=== PATIENT | female | born 1980 | race Caucasian/White ===

== ENCOUNTER 2016-05-21 12:32 | Emergency (ER) | payer BC, OTHER ==
[~2016-05-21] VITALS: Ht 154.9 cm; Wt 59.0 kg
--- OUTSIDE RECORDS SUMMARY | 2016-05-21 12:42 | XMS REPORT | Continuity of Care Document ---
Author Author [facility] Organization [facility] Address Unknown Phone Unavailable Care Team Providers Care Professional Architect Name Role Phone Zehra Lau PCP [phone] Source Comments Some departments are not documenting in the electronic medical record. If you do not see the information that you expected, contact Release of Information in the Health Information Management department at [phone] for further assistance in locating additional records.[facility] Active Allergies and Adverse Reactions Allergen Noted Date Severity Reactions Comments Sulfa (Sulfonamide 05/12/2014 HIVES, SHORTNESS OF Antibiotics) BREATH Current Medications Prescription Sig. Disp. Refills Start End Date Status Date dicyclomine (BENTYL) 10 Take 10 mg by mouth four Active mg capsule times daily. acetaminophen (TYLENOL) Take 1,000 mg by mouth Active 500 mg tablet every 6 hours as needed for Pain. pregabalin (LYRICA) 150 Take 150 mg by mouth Active mg capsule twice daily. ondansetron (ZOFRAN) 4 mg Take 1 Tab by mouth every 30 Tab 0 10/18/19 Active tablet 8 hours as needed for 16 Nausea. venlafaxine (EFFEXOR) Take 37.5 mg by mouth Active 37.5 mg tablet three times daily. Take with food. LORazepam (ATIVAN) 0.5 mg Take 1 Tab by mouth every Active tablet 6 hours as needed (Anxiety). HYDROcodone/acetaminophen Take 1-2 Tabs by mouth 75 Tab 0 04/21/19 Active (NORCO) 7.5/325 mg tablet every 8 hours as needed 17 for Pain Earliest Fill Date: 04/21/16 Max 8 tabs/day cephalexin (KEFLEX) 500 Take 1 Cap by mouth four 40 Cap 0 04/27/19 Active mg capsule times daily. 17 HYDROcodone/acetaminophen Take 1-2 Tabs by mouth 50 Tab 0 05/05/19 Active (NORCO) 5/325 mg tablet every 6 hours as needed 17 for Pain Max 8 tabs/day traMADol (ULTRAM) 50 mg Take 1 Tab by mouth every 100 Tab 1 05/11/19 Active tablet 6 hours as needed for 17 Pain. HYDROcodone/acetaminophen Take 1-2 Tabs by mouth 50 Tab 0 04/27/19 05/05/19 Discontin (NORCO) 5/325 mg tablet every 4 hours as needed 17 17 ued for Pain Max 8 tabs/day Active Problems Problem Noted Date S/P ankle fusion 09/06/2015 Ankle wound 01/15/2015 Fracture of humerus, proximal, right, closed 10/04/2014 Postop check 08/21/2014 Surgical wound infection 08/06/2014 Postop check 08/03/2014 Fall 05/12/2014 Talus fracture 05/12/2014 Resolved Problems Problem Noted Date Resolved Date Humerus fracture 05/12/2014 10/04/2014 Most Recent Encounters Date Type Specialty Providers Description 05/20/2016 Nurse Only Orthopedic Surgery Beatriz Helton LPN 05/11/2016 Refill Orthopedic Surgery Jairo Bravo MD 05/11/2016 Refill Orthopedic Surgery Jairo Bravo MD 05/05/2016 Refill Orthopedic Surgery Jairo Bravo MD 04/27/2016 Refill Orthopedic Surgery Jairo Bravo MD 04/21/2016 [facility] Radiology Jairo Bravo MD Encounter 04/21/2016 Office Visit Orthopedic Surgery Jairo Bravo MD Right foot pain (Primary Dx); Postop check 04/20/2016 Telephone Orthopedic Surgery Jairo Bravo MD Follow-up Phone Call 03/26/2016 [facility] Radiology Marisa Schroeder APRN Encounter 03/26/2016 Office Visit Orthopedic Surgery Marisa Schroeder APRN Postop check (Primary Dx) 03/25/2016 Orders Only Orthopedic Surgery Marisa Schroeder APRN Pain ( Primary Dx) 03/19/2016 Refill Orthopedic Surgery Jairo Bravo MD 03/12/2016 Office Visit Orthopedic Surgery Marisa Schroeder APRN Postop check (Primary Dx) 03/06/2016 [facility] Jairo Bravo MD Calcaneus fracture, right Encounter 03/06/2016 Anesthesia Bry Servin MD Event 03/06/2016 Anesthesia Kalyan Gallo CRNA Event 03/06/2016 Surgery Jairo Bravo MD OPEN REDUCTION INTERNAL FIXATION RIGHT CALCANEUS 03/04/2016 Ancillary Radiology Outpatient, Radiologist Diagnosis unknown Orders (Primary Dx) 02/28/2016 Ancillary Radiology Outpatient, Radiologist Diagnosis unknown Orders (Primary Dx) 02/28/2016 Prep for Case Orthopedic Surgery Jairo Bravo MD 02/27/2016 Office Visit Orthopedic Surgery Jairo Bravo MD Closed displaced fracture of right calcaneus, unspecified portion of calcaneus, initial encounter (Primary Dx) 02/24/2016 Hospital Radiology Encounter 02/24/2016 Hospital Radiology Encounter 02/24/2016 Hospital Radiology Encounter 02/24/2016 Hospital Radiology Encounter Social History Tobacco Use Types Packs/Day Years Used Date Current Every Day Smoker Cigarettes 0.25 20 Smokeless Tobacco: Never Used Tobacco Cessation: Ready to Quit: Yes Comments: Alcohol Use Drinks/Week oz/Week Comments Yes year ago reported 08/07/2014 Last Filed Vital Signs Vital Sign Reading Time Taken Blood Pressure 118/78 03/06/2016 4:45 PM HOTBED LEVER OPERATOR Pulse 89 03/06/2016 4:45 PM HOTBED LEVER OPERATOR Temperature 36.6 C (97.9 F) 03/06/2016 4:45 PM HOTBED LEVER OPERATOR Respiratory Rate 14 10/04/2014 8:36 AM CDT Height 1.549 m (5' 1") 04/21/2016 10:03 AM HOTBED LEVER OPERATOR Weight 58.06 kg (128 lb) 04/21/2016 10:03 AM HOTBED LEVER OPERATOR Body Mass Index 24.2 04/21/2016 10:03 AM HOTBED LEVER OPERATOR Oxygen Saturation 97% 03/06/2016 4:45 PM HOTBED LEVER OPERATOR Plan of Care Date Type Specialty Providers Description 06/16/2016 Appointment Orthopedic Surgery Jairo Bravo MD [address] [facility] [address] [place] [address] [phone] (Fax) Health Maintenance Due Date Last Done Comments Physical (Comprehensive) 11/16/1986 Exam Pertussis Vaccine 11/16/1990 Tetanus Vaccine 11/16/1996 Cervical Cancer Screening 11/16/2000 Influenza Vaccine 11/28/2015 Procedures from Last 3 Months Procedure Name Priority Date/Time Associated Diagnosis Comments TELEMETRY STRIPS-SCAN 03/09/2016 Results for this 1:03 PM HOTBED LEVER OPERATOR procedure are in the results section. ANESTHESIA PERIPHERAL Routine 03/06/2016 Results for this NERVE BLOCK 4:36 PM HOTBED LEVER OPERATOR procedure are in the results section. ANESTHESIA PERIPHERAL Routine 03/06/2016 Results for this NERVE BLOCK 4:36 PM HOTBED LEVER OPERATOR procedure are in the results section. OPEN REDUCTION INTERNAL 03/06/2016 Calcaneus fracture, right FIXATION RIGHT CALCANEUS 12:55 PM HOTBED LEVER OPERATOR Results from Last 3 Months FOOT COMP MIN 3 VIEWS RIGHT (04/21/2016 10:14 AM)Only the most recent of 2 results within the time period is included. Impressions Impression: Mild partial progressive healing of the internally fix fracture the calcaneus. Finalized by Gwyn Roberts M.D. on 04/21/2016 12:20 PM. Dictated by Gwyn Roberts M.D. on 04/21/2016 12:16 PM. Narrative Foot Clinic data: Right foot pain Three projections were acquired. Comparison is made to patient's prior study of 03/26/2016. The fracture the calcaneus is again noted. Alignment appears unchanged. Mild partial progressive healing is noted. No new fractures are noted. Is no evidence of abnormal lucency associated orthopedic hardware. Degenerative changes involving the first MTP joint are present. Mild osteopenia is present. Procedure Note Interface, Radiant Results - Tue Apr 21, 2016 12:23 PM HOTBED LEVER OPERATOR Foot Clinic data: Right foot pain Three projections were acquired. Comparison is made to patient's prior study of 03/26/2016. The fracture the calcaneus is again noted. Alignment appears unchanged. Mild partial progressive healing is noted. No new fractures are noted. Is no evidence of abnormal lucency associated orthopedic hardware. Degenerative changes involving the first MTP joint are present. Mild osteopenia is present. IMPRESSION Impression: Mild partial progressive healing of the internally fix fracture the calcaneus. Finalized by Gwyn Roberts M.D. on 04/21/2016 12:20 PM. Dictated by Gwyn Roberts M.D. on 04/21/2016 12:16 PM. TELEMETRY STRIPS-SCAN (03/09/2016 1:03 PM) Narrative Ordered by an unspecified provider. ANESTHESIA PERIPHERAL NERVE BLOCK (03/06/2016 4:36 PM) Narrative Bry Servin MD 03/06/20164:36 PM Anesthesia Procedure: Peripheral Nerve Block PERIPHERAL NERVE BLOCK Date/Time: 03/06/2016 1:00 PM Patient location: pre-op Reason for block: post-op pain management Staff Anesthesiologist: VENESSA ANGELO Performed by: BRY SERVIN Preprocedure checklist performed: 2 patient identifiers, risks & benefits discussed, patient evaluated, timeout performed, consent obtained, patient being monitored and sterile drape Sterile technique: - Proper hand washing - Cap, mask - Sterile gloves - Skin prep for antisepsis Peripheral Nerve Block Procedure Patient position: supine Prep: ChloraPrep Monitoring: BP, EKG and continuous pulse ox Block type: popliteal Laterality: right Injection technique: catheter Procedures: ultrasound guided Local infiltration: lidocaine Strength: 1%; Dose: 3 mL Needle/cathether: Needle type: Tuohy Needle gauge: 18 G; Needle length: 4 in Needle location: ultrasound guidance Catheter at skin depth: 10 cm Procedure Outcome Injection assessment: negative aspiration for heme, no paresthesia on injection, incremental injection and local visualized surrounding nerve on ultrasound Observations: adequate block, comfortable throughout block, patient sedated but conversant throughout block and patient tolerated the procedure well with no immediate complications Refer to nursing documentation for vitals and monitoring data during procedure. Anesthesia Procedure: Peripheral Nerve Block PERIPHERAL NERVE BLOCK Date/Time: 03/06/2016 1:00 PM Patient location: pre-op Reason for block: post-op pain management Staff Anesthesiologist: VENESSA ANGELO Performed by: BRY SERVIN Preprocedure checklist performed: 2 patient identifiers, risks & benefits discussed, patient evaluated, timeout performed, consent obtained, patient being monitored and sterile drape Sterile technique: - Proper hand washing - Cap, mask - Sterile gloves - Skin prep for antisepsis Peripheral Nerve Block Procedure Patient position: supine Prep: ChloraPrep Monitoring: BP, EKG and continuous pulse ox Block type: adductor canal Laterality: right Injection technique: single-shot Procedures: ultrasound guided Local infiltration: lidocaine Strength: 1%; Dose: 2 mL Needle/cathether: Needle type: Tuohy Needle gauge: 18 G; Needle length: 4 in Needle location: ultrasound guidance Procedure Outcome Injection assessment: negative aspiration for heme, no paresthesia on injection, incremental injection and local visualized surrounding nerve on ultrasound Observations: adequate block, patient sedated but conversant throughout block, patient tolerated the procedure well with no immediate complications and comfortable throughout block Refer to nursing documentation for vitals and monitoring data during procedure. ANESTHESIA PERIPHERAL NERVE BLOCK (03/06/2016 4:36 PM) Kirk Servin MD 03/06/20164:36 PM Anesthesia Procedure: Peripheral Nerve Block PERIPHERAL NERVE BLOCK Date/Time: 03/06/2016 1:00 PM Patient location: pre-op Reason for block: post-op pain management Staff Anesthesiologist: VENESSA ANGELO Performed by: BRY SEVRIN Preprocedure checklist performed: 2 patient identifiers, risks & benefits discussed, patient evaluated, timeout performed, consent obtained, patient being monitored and sterile drape Sterile technique: - Proper hand washing - Cap, mask - Sterile gloves - Skin prep for antisepsis Peripheral Nerve Block Procedure Patient position: supine Prep: ChloraPrep Monitoring: BP, EKG and continuous pulse ox Block type: popliteal Laterality: right Injection technique: catheter Procedures: ultrasound guided Local infiltration: lidocaine Strength: 1%; Dose: 3 mL Needle/cathether: Needle type: Tuohy Needle gauge: 18 G; Needle length: 4 in Needle location: ultrasound guidance Catheter at skin depth: 10 cm Procedure Outcome Injection assessment: negative aspiration for heme, no paresthesia on injection, incremental injection and local visualized surrounding nerve on ultrasound Observations: adequate block, comfortable throughout block, patient sedated but conversant throughout block and patient tolerated the procedure well with no immediate complications Refer to nursing documentation for vitals and monitoring data during procedure. Anesthesia Procedure: Peripheral Nerve Block PERIPHERAL NERVE BLOCK Date/Time: 03/06/2016 1:00 PM Patient location: pre-op Reason for block: post-op pain management Staff Anesthesiologist: VENESSA ANGELO Performed by: BRY SERVIN Preprocedure checklist performed: 2 patient identifiers, risks & benefits discussed, patient evaluated, timeout performed, consent obtained, patient being monitored and sterile drape Sterile technique: - Proper hand washing - Cap, mask - Sterile gloves - Skin prep for antisepsis Peripheral Nerve Block Procedure Patient position: supine Prep: ChloraPrep Monitoring: BP, EKG and continuous pulse ox Block type: adductor canal Laterality: right Injection technique: single-shot Procedures: ultrasound guided Local infiltration: lidocaine Strength: 1%; Dose: 2 mL Needle/cathether: Needle type: Tuohy Needle gauge: 18 G; Needle length: 4 in Needle location: ultrasound guidance Procedure Outcome Injection assessment: negative aspiration for heme, no paresthesia on injection, incremental injection and local visualized surrounding nerve on ultrasound Observations: adequate block, patient sedated but conversant throughout block, patient tolerated the procedure well with no immediate complications and comfortable throughout block Refer to nursing documentation for vitals and monitoring data during procedure. TEST-URINE (03/06/2016 11:40 AM) Component Value Range Urine-HCG NEG Specific [place] 1.019 Specimen Urine GENERAL RAD LOWER EXT EXTERNAL IMAGING (02/24/2016 12:45 AM)Only the most recent of 2 results within the time period is included. Narrative This order has been auto finalized and does not contain a result. CT LOWER EXT EXTERNAL IMAGING (02/24/2016 12:30 AM)Only the most recent of 2 results within the time period is included. Narrative This order has been auto finalized and does not contain a result.
--- NOTE | 2016-05-21 12:46 | ED General ---
General Chief Complaint: General Problems/Pain Stated Complaint: MED REFILL Nursing Triage Note: PT STATES SHE NEEDS A REFILL ON HER LYRICA MEDICATION. STATES SHE DOES NOT HAVE A PCP ANYMORE. Nursing Sepsis Screen: No Definite Risk Source of Information: Patient Exam Limitations: No Limitations History of Present Illness Time Seen by Provider: 12:44 Initial Comments Ambulatory to ER requesting a refill on her Lyrica. States that she "fired" her primary care provider in [place] 1.5 months ago and is now out of her Lyrica. She states that she has in the past had hydrocodone and Ultram for pain but that they don't work that she may have a few of them left. Records indicate that she had them filled just this month. She denies any new or worsening symptoms or chronic back pain. Does not report fevers or chills Constitutional: see HPI EENTM: see HPI Respiratory: no symptoms reported Cardiovascular: no symptoms reported Genitourinary: no symptoms reported Musculoskeletal: see HPI back pain Skin: no symptoms reported Psychiatric/Neurological: No Symptoms Reported Hematologic/Lymphatic: No Symptoms Reported Past [id number] Hx Patient Social History Recent Foreign Travel: No Contact w/Someone Who Travel: No Recent Infectious Disease Expo: No Physical Exam Vital Signs Vital Sign - Last 12Hours 05/21/16 12:41 Temp 99.2 Pulse 111 Resp 20 B/P 145/100 Pulse Ox 96 O2 Delivery Room Air Capillary Refill : Less Than 3 Seconds General Appearance: No Apparent Distress WD/WN Eyes: Bilateral Eye EOMI, Bilateral Eye Normal Inspection, Bilateral Eye PERRL HEENT: PERRL/EOMI TMs Normal Neck: Full Range of Motion Normal Inspection Respiratory: Lungs Clear Normal Breath Sounds No Accessory Muscle Use No Respiratory Distress Cardiovascular: Normal Peripheral Pulses Tachycardia Gastrointestinal: Non Tender Soft Extremity: Normal Capillary Refill Normal Inspection Neurologic/Psychiatric: Alert Oriented x3 No Motor/Sensory Deficits Skin: Normal Color Warm/Dry Progress/Results/Core Measures Results/Orders Vital Signs/I&O Vital Sign - Last 12Hours 05/21/16 12:41 Temp 99.2 Pulse 111 Resp 20 B/P 145/100 Pulse Ox 96 O2 Delivery Room Air Blood Pressure Mean: 115 Departure Impression Impression: Primary Impression: Chronic pain Qualified Code: G89.29 - Other chronic pain Disposition: 01 HOME, SELF-CARE Condition: Stable Departure-Patient Inst. Decision time for Depature: 12:46 Referrals: NO,LOCAL PHYSICIAN (PCP/Family) Primary Care Physician Patient Instructions: CHRONIC PAIN Add. Discharge Instructions: 1. Call one of the providers listed to make an appointment to be seen All discharge instructions reviewed with patient and/or family. Voiced understanding. Work/School Note: Local Medical Staff Listing CORY HARGROVE APRN May 21, 2016 12:46
[2016-05-21] MEDS ORDERED: PREG150C PO (12:50)
[2016-05-21] MEDS ORDERED: HYDR-3816 PO (12:50)
[2016-05-21] MEDS ORDERED: VENLAFAXINE (12:50)
[2016-05-21 12:53] VITALS: BP 145/100
== END 2016-05-21 12:53 | disposition home or self-care (01) ==
LOC: ER 12:37
DX: G89.29 Other chronic pain (principal)
CPT/HCPCS: 99281

== ENCOUNTER 2018-08-25 17:22 | Emergency (ER) | payer SELFPAY ==
[~2018-08-25] VITALS: Ht 154.9 cm; Wt 54.4 kg
[~2018-08-25 17:22] MED LIST: HYDR-34 PO; PREG150C PO; VENLAFAXINE
[2018-08-25 17:43] LABS: HEMATOCRIT 37 % (35-52); HEMOGLOBIN 12.6 G/DL (11.5-16.0); LYMPHOCYTES % (AUTO) 29 % (12-44); MEAN CORPUSCULAR HEMOGLOBIN 33 PG (25-34); MEAN CORPUSCULAR HGB CONC 34 G/DL (32-36); MEAN CORPUSCULAR VOLUME 96 FL (80-99); MEAN PLATELET VOLUME 9.7 FL (7.4-10.4); MONOCYTES % (AUTO) 6 % (0-12); NEUTROPHILS % (AUTO) 64 % (42-75); PLATELET COUNT 315 10^3/uL (130-400); RED CELL DISTRIBUTION WIDTH 14.2 % (10.0-14.5); WHITE BLOOD COUNT 11.2 10^3/uL (4.3-11.0)
[2018-08-25 17:44] LABS: BASOPHILS % (AUTO) 0 % (0-10); EOSINOPHILS # (AUTO) 0.1 10^3/uL (0.0-0.3); EOSINOPHILS % (AUTO) 1 % (0-10); LYMPHOCYTES # (AUTO) 3.3 X 10^3 (1.0-4.0); MONOCYTES # (AUTO) 0.6 X 10^3 (0.0-1.0); NEUTROPHILS # (AUTO) 7.1 X 10^3 (1.8-7.8)
--- NOTE | 2018-08-25 17:50 | Diagnostic Imaging Report ---
PROCEDURE: CT head without contrast. TECHNIQUE: Multiple contiguous axial images were obtained through the brain without the use of intravenous contrast. Auto Exposure Controls were utilized during the CT exam to meet ALARA standards for radiation dose reduction. INDICATION: Syncope and fall. FINDINGS: The ventricles and sulci are within normal limits. There is no hydrocephalus or cerebral edema. There is no midline shift or mass effect. There is no intracranial mass, hemorrhage, or extra-axial fluid collection. The visualized paranasal sinuses and mastoid air cells are clear. There are no regional areas of decreased attenuation appreciated to suggest an acute CVA. IMPRESSION: No acute intracranial abnormality. Dictated by: Dictated on workstation # [id number]
[2018-08-25 18:01] LABS: INR 0.8 (0.8-1.4); PROTHROMBIN TIME PATIENT 11.9 SEC (12.2-14.7)
[2018-08-25 18:08] LABS: ALANINE AMINOTRANSFERASE 9 U/L (0-55); ALBUMIN 4.1 GM/DL (3.2-4.5); ALKALINE PHOSPHATASE 128 U/L (40-136); BILIRUBIN,TOTAL 0.2 MG/DL (0.1-1.0); BUN/CREATININE RATIO 15; CALCIUM 9.3 MG/DL (8.5-10.1); CARBON DIOXIDE 24 MMOL/L (21-32); CHLORIDE 100 MMOL/L (98-107); CREATININE SERUM 0.52 MG/DL (0.60-1.30); GFR ESTIMATED > 60; GLUCOSE 95 MG/DL (70-105); MAGNESIUM 1.7 MG/DL (1.8-2.4); POTASSIUM 3.9 MMOL/L (3.6-5.0); SODIUM 137 MMOL/L (135-145); TOTAL PROTEIN 6.8 GM/DL (6.4-8.2)
--- NOTE | 2018-08-25 18:10 | Diagnostic Imaging Report ---
INDICATION: Cough and syncope. COMPARISON: No prior examination is available for comparison. EXAMINATION: Single view of the chest was obtained. FINDINGS: The heart size, mediastinal configuration, and pulmonary vascularity are within normal limits. There is no pleural effusion, pneumothorax, or pneumonia. The osseous structures are unremarkable. IMPRESSION: No acute cardiopulmonary abnormality. Dictated by: Dictated on workstation # [id number]
--- NOTE | 2018-08-25 18:46 | ED Syncope ---
General Chief Complaint: Dizziness/Syncope Stated Complaint: DIZZY, PT FELL Nursing Triage Note: PTS FOUNDHER ON THE BATHRRROM FLOOR. 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 Source of Information: Patient History of Present Illness Date Seen by Provider: August 25, 2018 Time Seen by Provider: 18:21 Initial Comments Patient is a 37-year-old female presenting to the emergency department after having syncopal episode at home. 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 She is been up all night working the last 2 nights and not been able to rest during the day. Today she had gotten home from work and had several think she had to get done so she did not rest today either. She was having a lot of pain in her feet from work so she had taken some pain medications morning as well. She states that she has had episodes of fainting and passing out like this in the past when her blood sugar been low. She does admit that she's not had anything to eat or drink all day. She was found on the bathroom floor by her . She thinks she may have hit her head as well as she fell. She denies any nausea or vomiting. She denies any diarrhea. She denies having any fever recently but has had cough and congestion with sinus drainage. She denies any pain with urination or change in her urine. Allergies and Home Medications Allergies Coded Allergies: Sulfa (Sulfonamide Antibiotics) (Verified Allergy, Intermediate, 05/21/16) Home Medications Pregabalin 150 Mg Capsule, 150 MG PO TID, (Reported) Patient Home Medication List Home Medication List Reviewed: Yes Review of Systems Constitutional: No chills, No diaphoresis, No fever EENTM: nose congestion (and sinus pressure) Respiratory: cough Cardiovascular: no symptoms reported; No chest pain, No edema, No palpitations Gastrointestinal: no symptoms reported; No diarrhea, No nausea, No vomiting Genitourinary: no symptoms reported; No dysuria, No hematuria Musculoskeletal: other (chronic pain in feet and legs) Skin: no symptoms reported Psychiatric/Neurological: Headache (mild since fainting), Other (insomnia and trouble sleeping chronically) Past Xnxbjvz-Sxfwuk-Sfzxho Hx Past Med/Social Hx: Reviewed Nursing Past Med/Soc Hx Patient Social History Type Used: Cigarettes Recent Foreign Travel: No Contact w/Someone Who Travel: No Recent Infectious Disease Expo: No Recent Hopitalizations: Yes (SURGERY IN 02/2016 FOR LT FOOT) Physical Abuse: No Sexual Abuse: No Mistreated: No Fear: No Seasonal Allergies Seasonal Allergies: Yes Past Medical History Surgeries: Yes Hysterectomy, Orthopedic, Tubal Ligation Respiratory: No Cardiac: No Neurological: Yes Neuropathy : No 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 oz. 54.921582re; BMI Method:Stated General Appearance: No Apparent Distress, WD/WN HEENT: PERRL/EOMI, Normal ENT Inspection, Pharynx Normal Neck: Full Range of Motion, Normal Inspection, Non Tender, Supple Cardiovascular: Regular Rate, Rhythm, Normal Peripheral Pulses Respiratory: Chest Non Tender, Lungs Clear, Normal Breath Sounds, No Accessory Muscle Use, No Respiratory Distress Gastrointestinal: No Pulsatile Mass, Non Tender, Soft Neurologic/Psychiatric: Alert, Oriented x3 Cranial Nerves: Normal Hearing, Normal Speech, PERRL Motor/Sensory: No Motor Deficit, No Sensory Deficit Skin: Normal Color, Warm/Dry Progress/Results/Core Measures Results/Orders Lab Results Laboratory Tests Test 08/25/18 17:35 08/25/18 18:24 Range/Units White Blood Count 11.2 H 4.3-11.0 10^3/uL Red Blood Count 3.85 L 4.35-5.85 10^6/uL Hemoglobin 12.6 11.5-16.0 G/DL Hematocrit 37 35-52 % Mean Corpuscular Volume 96 80-99 FL Mean Corpuscular Hemoglobin 33 25-34 PG Mean Corpuscular Hemoglobin Concent 34 32-36 G/DL Red Cell Distribution Width 14.2 10.0-14.5 % Platelet Count 315 130-400 10^3/uL Mean Platelet Volume 9.7 7.4-10.4 FL Neutrophils (%) (Auto) 64 42-75 % Lymphocytes (%) (Auto) 29 12-44 % Monocytes (%) (Auto) 6 0-12 % Eosinophils (%) (Auto) 1 0-10 % Basophils (%) (Auto) 0 0-10 % Neutrophils # (Auto) 7.1 1.8-7.8 X 10^3 Lymphocytes # (Auto) 3.3 1.0-4.0 X 10^3 Monocytes # (Auto) 0.6 0.0-1.0 X 10^3 Eosinophils # (Auto) 0.1 0.0-0.3 10^3/uL Basophils # (Auto) 0.0 0.0-0.1 10^3/uL Prothrombin Time 11.9 L 12.2-14.7 SEC INR Comment 0.8 0.8-1.4 Activated Partial Thromboplast Time 30 24-35 SEC Sodium Level 137 135-145 MMOL/L Potassium Level 3.9 3.6-5.0 MMOL/L Chloride Level 100 98-107 MMOL/L Carbon Dioxide Level 24 21-32 MMOL/L Anion Gap 13 5-14 MMOL/L Blood Urea Nitrogen 8 7-18 MG/DL Creatinine 0.52 L 0.60-1.30 MG/DL Estimat Glomerular Filtration Rate > 60 BUN/Creatinine Ratio 15 Glucose Level 95 70-105 MG/DL Calcium Level 9.3 8.5-10.1 MG/DL Corrected Calcium 9.2 8.5-10.1 MG/DL Magnesium Level 1.7 L 1.8-2.4 MG/DL Total Bilirubin 0.2 0.1-1.0 MG/DL Aspartate Amino Transf (AST/SGOT) 18 5-34 U/L Alanine Aminotransferase (ALT/SGPT) 9 0-55 U/L Alkaline Phosphatase 128 40-136 U/L Troponin T < 6 <=10 NG/L Total Protein 6.8 6.4-8.2 GM/DL Albumin 4.1 3.2-4.5 GM/DL Urine Color YELLOW Urine Clarity CLEAR Urine pH 6.0 5-9 Urine Specific [place] <1.005 1.016-1.022 Urine Protein NEGATIVE NEGATIVE Urine Glucose (UA) NEGATIVE NEGATIVE Urine Ketones NEGATIVE NEGATIVE Urine Nitrite NEGATIVE NEGATIVE Urine Bilirubin NEGATIVE NEGATIVE Urine Urobilinogen 0.2 NORMAL MG/DL Urine Leukocyte Esterase NEGATIVE NEGATIVE Urine RBC (Auto) NEGATIVE NEGATIVE Urine RBC NONE /HPF Urine WBC NONE /HPF Urine Squamous Epithelial Cells 0-2 /HPF Urine Crystals NONE /LPF Urine Bacteria TRACE /HPF Urine Casts NONE /LPF Urine Mucus NEGATIVE /LPF Urine Culture Indicated NO Urine Opiates Screen POSITIVE H NEGATIVE Urine Oxycodone Screen NEGATIVE NEGATIVE Urine Methadone Screen NEGATIVE NEGATIVE Urine Propoxyphene Screen NEGATIVE NEGATIVE Urine Barbiturates Screen NEGATIVE NEGATIVE Ur Tricyclic Antidepressants Screen NEGATIVE NEGATIVE Urine Phencyclidine Screen NEGATIVE NEGATIVE Urine Amphetamines Screen NEGATIVE NEGATIVE Urine Methamphetamines Screen NEGATIVE NEGATIVE Urine Benzodiazepines Screen NEGATIVE NEGATIVE Urine Cocaine Screen NEGATIVE NEGATIVE Urine Cannabinoids Screen NEGATIVE NEGATIVE Vital Signs/I&O 08/25/18 08/25/18 17:28 19:23 Temp 97.8 97.5 Pulse 100 92 Resp 20 16 B/P (MAP) 130/85 (100) 140/82 (101) Pulse Ox 97 O2 Delivery Room Air Room Air 08/26/18 00:00 Intake Total 500 ml Balance 500 ml Blood Pressure Mean: 100 Progress Progress Note : Progress Note I reviewed labs and imaging that had been ordered by Dr. Davila during the day shift. No acute abnormality on her CT scan her chest x-ray. Her labs. All stable as well. Patient reports feel better after having fluids as well as having a snack here in the emergency department. She denied having any further dizziness. Will discharge to home with return precautions. Advised to eat small frequent meals for at least next to help try and keep her blood sugar a more steady level. Also encouraged to try and get better sleep. Initial ECG Impression Date: August 25, 2018 Initial ECG Impression Time: 17:28 Initial ECG Rate: 95 Initial ECG Rhythm: Normal Sinus Initial ECG Intervals: Normal Initial ECG Impression: Normal Initial ECG Comparisson: No Previous ECG Available Comment Normal sinus rhythm with heart rate 95 bpm. NC interval 134 ms. QT interval of 358 ms and a QT corrected interval [address] elevation or ischemic changes. Initial EKG reviewed by Dr. Davila. Diagnostic Imaging Diagonstic Imaging: CT Plain Films/CT/US/NM/MRI: head Comments NAME: LENA YANCEY MED REC#: [id number] PT STATUS: REG ER : 1980 PHYSICIAN: SANDY LNI MD ADMIT DATE: 08/25/18/ER FS Signed Date of Exam:08/25/18 CT HEAD WO PROCEDURE: CT head without contrast. TECHNIQUE: Multiple contiguous axial images were obtained through the brain without the use of intravenous contrast. Auto Exposure Controls were utilized during the CT exam to meet ALARA standards for radiation dose reduction. INDICATION: Syncope and fall. FINDINGS: The ventricles and sulci are within normal limits. There is no hydrocephalus or cerebral edema. There is no midline shift or mass effect. There is no intracranial mass, hemorrhage, or extra-axial fluid collection. The visualized paranasal sinuses and mastoid air cells are clear. There are no regional areas of decreased attenuation appreciated to suggest an acute CVA. IMPRESSION: No acute intracranial abnormality. Dictated by: Dictated on workstation # [id number] Dict: 08/25/181747 Trans: 08/25/181831 [id number] Interpreted by: NORMA BULLOCK MD Electronically signed by: NORMA BULLOCK MD 08/25/181831 Reviewed: Reviewed by Me (and radiologist reading) Diagonstic Imaging: Xray Plain Films/CT/US/NM/MRI: chest Comments NAME: LENA YANCEY MED REC#: [id number] PT STATUS: REG ER : 1980 PHYSICIAN: SANDY LIN MD ADMIT DATE: 08/25/18/ER FS Signed Date of Exam:08/25/18 CHEST 1 VIEW AP/PA ONLY INDICATION: Cough and syncope. COMPARISON: No prior examination is available for comparison. EXAMINATION: Single view of the chest was obtained. FINDINGS: The heart size, mediastinal configuration, and pulmonary vascularity are within normal limits. There is no pleural effusion, pneumothorax, or pneumonia. The osseous structures are unremarkable. IMPRESSION: No acute cardiopulmonary abnormality. Dictated by: Dictated on workstation # [id number] Dict: 08/25/181803 Trans: 08/25/181831 PJE [id number] Interpreted by: NORMA BULLOCK MD Electronically signed by: NORMA BULLOCK MD 08/25/181831 Reviewed: Reviewed by Me (and radiologist reading) Departure Impression Primary Impression: Syncope Qualified Codes: R55 - Syncope and collapse Additional Impressions: Insomnia Qualified Codes: G47.00 - Insomnia, unspecified Fatigue Qualified Codes: R53.83 - Other fatigue Disposition: 01 HOME, SELF-CARE Condition: Stable Departure-Patient Inst. Decision time for Depature: 19:17 Referrals: NO,LOCAL PHYSICIAN (PCP/Family) Primary Care Physician Patient Instructions: Syncope (Fainting) (DC), Insomnia (DC) Add. Discharge Instructions: Make sure you are eating regularly to keep your blood sugars at a more constant level. Try to get better rest Check with clinic for continued concerns or return if worsening symptoms. All discharge instructions reviewed with patient and/or family. Voiced understanding. Work/School Note: Work Release Form Date Seen in the Emergency Department: August 25, 2018 Return to Work: August 26, 2018 GEORGIA HOOKS MD August 25, 2018 18:46
[2018-08-25 19:10] LABS: AMPHETAMINE SCREEN, URINE NEGATIVE (NEGATIVE); BACTERIA,URINE TRACE /HPF; BARBITURATE SCREEN URINE NEGATIVE (NEGATIVE); BENZODIAZEPINES SCREEN URINE NEGATIVE (NEGATIVE); BILIRUBIN,URINE NEGATIVE (NEGATIVE); CANNABINOID SCREEN, URINE NEGATIVE (NEGATIVE); CLARITY,URINE CLEAR; COCAINE SCREEN URINE NEGATIVE (NEGATIVE); COLOR,URINE YELLOW; GLUCOSE, URINE (UA) NEGATIVE (NEGATIVE); KETONES,URINE NEGATIVE (NEGATIVE); LEUKOCYTE ESTERASE ,URINE NEGATIVE (NEGATIVE); METHADONE STAT NEGATIVE (NEGATIVE); METHAMPHETAMINE SCREEN URINE S NEGATIVE (NEGATIVE); NITRITE,URINE NEGATIVE (NEGATIVE); OPIATE SCREEN URINE POSITIVE (NEGATIVE); OXYCODONE STAT NEGATIVE (NEGATIVE); PROPOXYPHENE STAT NEGATIVE (NEGATIVE); PROTEIN,URINE NEGATIVE (NEGATIVE); SQUAMOUS EPITHELIAL CELL,UR 0-2 /HPF; TRICYCLIC ANTIDEPRESSANTS SCRE NEGATIVE (NEGATIVE); UROBILINOGEN,URINE 0.2 MG/DL (NORMAL)
[2018-08-25 19:23] VITALS: BP 140/82
--- NOTE | 2018-08-25 19:30 | NUR ---
iv fluids that had been started by EMS was discontinued prior to this rn seeing the patient.
== END 2018-08-25 19:30 | disposition home or self-care (01) ==
LOC: EDUNIT# 17:22 → ER FS 17:23
DX: R55 Syncope and collapse (principal); G47.00 Insomnia, unspecified; R53.83 Other fatigue; G62.9 Polyneuropathy, unspecified; Z88.2 Allergy status to sulfonamides; Z98.890 Other specified postprocedural states; Z90.710 Acquired absence of both cervix and uterus; Z98.51 Tubal ligation status
CPT/HCPCS: 36415; 70450; 71045; 80053; 80306; 81000; 83735; 84484; 85025; 85610; 85730; 93005

== ENCOUNTER 2018-09-25 08:33 | Emergency (ER) | payer SELFPAY ==
[~2018-09-25] VITALS: Ht 154.9 cm; Wt 54.4 kg
--- OUTSIDE RECORDS SUMMARY | 2018-09-25 08:38 | XMS REPORT | Encounter Summary ---
Author Author [facility] Organization [facility] Address Unknown Phone Unavailable Care Team Providers Care Breaker Layer Name Role Phone Zehra Lau MD PCP Unavailable Martine Bravo RN Unavailable Unavailable Maria M Watkins RN Unavailable Unavailable Jonathon Pérez RN Unavailable Unavailable Kayley Parks MD Unavailable Tosha Dawkins RN Unavailable Unavailable Pao Quintero RING PACKER-MANAGER HARDWARE Unavailable Rene Thompson MD Unavailable Marisa Schroeder RING PACKER Unavailable Jairo Bravo MD Unavailable Mychart, Generic Provider Unavailable Unavailable Gerry Quevedo RN 2 Unavailable Ashok Piper MD Unavailable Jaci Brown MD Unavailable Nicole Gandhi RN Unavailable Unavailable Kathryn Alvarado RN Unavailable Unavailable Ashok Crespo RN Unavailable Unavailable Corin Gamble RT(R)(),LRT Unavailable Unavailable Ashok Garcia MD Unavailable Ene Fernandez RN 2 Unavailable Sarah Montesinos RN Unavailable Unavailable Encounter Details Care Team Description Date Type Department Rene Thompson MD [address] [facility] [address] [place] [address] [phone] Right shoulder pain, unspecified chronicity (Primary Dx) 05/20/2018 Orders Only The [facility] [address] [place] [address] Social History Date Tobacco Use Types Packs/Day Years Used Current Every Day Smoker Cigarettes 0.25 20 Smokeless Tobacco: Never Used Drinks/Week oz/Week Comments Alcohol Use year ago reported 08/07/2014 Yes Sex Assigned at Date Recorded Not on file Industry Job Start Date Occupation Not on file Not on file Not on file Travel End Travel History Travel Start No recent travel history available. documented as of this encounter Functional Status Date of Assessment Functional Status Response 09/07/2015 Does the patient have a hearing impairment: No 09/07/2015 Does the patient have a visual impairment: No 09/07/2015 Does the patient have impaired ambulation: Yes 09/07/2015 Does the patient have an activity of daily living No (ADL) impairment: 09/07/2015 Does the patient have an instrumental activity of No daily living (IADL) impairment: Date of Assessment Cognitive Status Response 09/07/2015 Does the patient have a cognitive impairment: No documented as of this encounter Plan of Treatment Order Schedule Name Type Priority Associated Diagnoses Expected: 05/20/2018 (Approximate), Expires: 05/20/2019 SHOULDER MIN 2 VIEWS Imaging Routine Right shoulder pain, RIGHT unspecified chronicity documented as of this encounter Visit Diagnoses Diagnosis Right shoulder pain, unspecified chronicity - Primary documented in this encounter
--- OUTSIDE RECORDS SUMMARY | 2018-09-25 08:38 | XMS REPORT | Encounter Summary ---
Author Author [facility] Organization [facility] Address Unknown Phone Unavailable Care Team Providers Care Bathhouse Attendant Name Role Phone Zehra Lau MD PCP Unavailable Martine Bravo RN Unavailable Unavailable Maria M Watkins RN Unavailable Unavailable Jonathon Pérez RN Unavailable Unavailable Kayley Parks MD Unavailable Tosha Dawkins RN Unavailable Unavailable Pao Quintero INDUSTRIAL RELATIONS OFFICER-LABORATORY AIDE Unavailable Rene Thompson MD Unavailable Marisa Schroeder INDUSTRIAL RELATIONS OFFICER Unavailable Jairo Bravo MD Unavailable Mychart, Generic Provider Unavailable Unavailable Gerry Quevedo RN 2 Unavailable Ashok Piper MD Unavailable Jaci Brown MD Unavailable Nicole Gandhi RN Unavailable Unavailable Kathryn Alvarado RN Unavailable Unavailable Ashok Crespo RN Unavailable Unavailable Corin Gamble RT(R)(),LRT Unavailable Unavailable Ashok Garcia MD Unavailable Ene Fernandez RN 2 Unavailable Sarah Montesinos RN Unavailable Unavailable Reason for Visit * Reason Comments General Question Encounter Details Care Team Description Date Type Department Rene Thompson MD [address] [facility] [address] [place] [address] [phone] General Question 05/16/2018 Telephone The [facility] [address] [place] [address] Social History Date Tobacco Use Types Packs/Day [...] impairment: No documented as of this encounter Miscellaneous Notes * Telephone Encounter - Karla Eduardo RN - 05/16/2018 7:31 AM APPLICATIONS INTERN This RN called patient to rescheduled 05/16/18 appointment to an earlier time dur ing the day. This RN left a VM in regards to needing to reschedule this appointm ent and left a call back number ICATIONS INTERN documented in this encounter Plan of Treatment Not on filedocumented as of this encounter Visit Diagnoses Not on filedocumented in this encounter
--- OUTSIDE RECORDS SUMMARY | 2018-09-25 08:38 | XMS REPORT | Clinical Summary ---
Author Author [facility] Organization [facility] Address Unknown Phone Unavailable Care Team Providers Care General Ledger Bookkeeper Name Role Phone Zehra Lau MD PCP Unavailable Martine Bravo RN Unavailable Unavailable Maria M Watkins RN Unavailable Unavailable Jonathon Pérez RN Unavailable Unavailable Kayley Parks MD Unavailable Tosha Dawkins RN Unavailable Unavailable Pao Quintero FRONT END WEB DEVELOPER-KITCHEN FOOD ASSEMBLER Unavailable Rene Thompson MD Unavailable Marisa Schroeder FRONT END WEB DEVELOPER Unavailable Jairo Bravo MD Unavailable Mychart, Generic Provider Unavailable Unavailable Gerry Quevedo RN 2 Unavailable Ashok Piper MD Unavailable Jaci Brown MD Unavailable Nicole Gandhi RN Unavailable Unavailable Kathryn Alvarado RN Unavailable Unavailable Ashok Crespo RN Unavailable Unavailable Corin Gamble RT(R)(),LRT Unavailable Unavailable Ashok Garcia MD Unavailable Ene Fernandez RN 2 Unavailable Sarah Montesinos RN Unavailable Unavailable Source Comments Some departments are not documenting in the electronic medical record. If you d o not see the information that you expected, contact Release of Information in [facility] Health Information Management department at [phone] for further assistan ce in locating additional records.[facility] Allergies Comments Active Allergy Reactions Severity Noted Date Sulfa (Sulfonamide HIVES, 05/12/2014 Antibiotics) SHORTNESS OF BREATH Medications End Date Status Medication Sig Dispensed Refills Start Date Active dicyclomine (BENTYL) 10 Take 10 mg by 0 mg capsule mouth four times daily. Active acetaminophen (TYLENOL) Take 1,000 mg 0 500 mg tablet by mouth every 6 hours as needed for Pain. Active pregabalin (LYRICA) 150 Take 150 mg 0 mg capsule by mouth twice daily. Active ondansetron (ZOFRAN) 4 mg Take 1 Tab by 30 Tab 0 tablet mouth every 8 6 hours as needed for Nausea. Active venlafaxine (EFFEXOR) Take 37.5 mg 0 37.5 mg tablet by mouth three times daily. Take with food. Active LORazepam (ATIVAN) 0.5 mg Take 1 Tab by 0 tablet mouth every 6 hours as needed (Anxiety). Active HYDROcodone/acetaminophen Take 1-2 Tabs 75 Tab 0 (NORCO) 7.5/325 mg tablet by mouth 7 every 8 hours as needed for Pain Earliest Fill Date: 04/21/16 Max 8 tabs/day Active HYDROcodone/acetaminophen Take 1-2 Tabs 50 Tab 0 (NORCO) 5/325 mg tablet by mouth 7 every 6 hours as needed for Pain Max 8 tabs/day Active traMADol (ULTRAM) 50 mg Take 1 Tab by 100 Tab 1 tablet mouth every 6 7 hours as needed for Pain. Active Problems Problem Noted Date S/P ankle fusion 09/06/2015 Ankle wound 01/15/2015 Fracture of humerus, proximal, right, closed 10/04/2014 Postop check 08/21/2014 Surgical wound infection 08/06/2014 Postop check 08/03/2014 Fall 05/12/2014 Talus fracture 05/12/2014 Resolved Problems Problem Noted Date Resolved Date Humerus fracture 05/12/2014 10/04/2014 Family History Medical History Relation Name Comments Heart Attack Father High Cholesterol Father Hypertension Father Cancer Maternal Grandmother Relation Name Status Comments Father Maternal Grandmother Social History Date Tobacco Use Types Packs/Day Years Used Current Every Day Smoker Cigarettes 0.25 20 Smokeless Tobacco: Never Used Tobacco Cessation: Ready to Quit: Yes Drinks/Week oz/Week Comments Alcohol Use year ago reported 08/07/2014 Yes Sex Assigned at Date Recorded Not on file Industry Job Start Date Occupation Not on file Not on file Not on file Travel End Travel History Travel Start No recent travel history available. Last Filed Vital Signs Reading Time Taken Comments Vital Sign 128/80 06/16/2016 10:54 AM CDT Blood Pressure 88 06/16/2016 10:54 AM CDT Pulse 36.6 C (97.9 F) 03/06/2016 4:45 PM POT FILLER Temperature 14 10/04/2014 8:36 AM CDT Respiratory Rate 97% 03/06/2016 4:45 PM POT FILLER Oxygen Saturation - - Inhaled Oxygen Concentration 58.1 kg (128 lb) 06/16/2016 10:54 AM CDT Weight 154.9 cm (5' 0.98") 06/16/2016 10:54 AM CDT Height 24.2 06/16/2016 10:54 AM CDT Body Mass Index Plan of Treatment Health Maintenance Due Date Last Done Comments PHYSICAL (COMPREHENSIVE) 11/16/1986 EXAM HIV SCREENING 11/16/1994 DTAP/TDAP VACCINES ( - 11/16/1997 Tdap) CERVICAL CANCER SCREENING 11/16/2009 INFLUENZA VACCINE 12/27/2018 Implants Device Identifier Shelf Expiration Date Model / Serial / Lot Implanted Type Area Manufactur er Right Shoulder 01/26/2017 [id number] / [id number] / [id number] Graft Bone 20ga Infuse Medium Left: Foot MEDTRONIC: Bovine Collagen Rhbmp-2 Vial SOFAMOR Implanted: Qty: 1 on 09/06/2015 by Jairo Chowdhury MD at [facility] 06/26/2020 1818-1020S / [id number] / [id number] Nail 10mm 20cm Ankle Left T2 Left: Foot UNIDENTIFI Intramedullary Lock Titanium ED MFG Implanted: Qty: 1 on 09/06/2015 by Jairo Bravo MD at [facility] 07/26/2020 1818-0001S / [id number] / [id number] Screw Bone 8mm 14.5mm Titanium Left: Foot UNIDENTIFI Ankle Cannulated Compression ED MFG Implanted: Qty: 1 on 09/06/2015 by Jairo Bravo MD at [facility] 05/26/2020 1826-0003S / [id number] / [id number] Cap End 4mm Ankle Insertion Left: Foot UNIDENTIFI Arthrodesis Nail Sterile T2 8mm ED MFG Implanted: Qty: 1 on 09/06/2015 by Jairo Bravo MD at [facility] [id number] / N/A / N/A T2 F/T Locking Screw Left: Foot ANGEL Implanted: Qty: 1 on 09/06/2015 by ELIJAH and Jairo Bravo MD at [facility] [id number] / N/A / N/A T-2 F/T Locking Screw Left: Foot ANGEL:ST Implanted: Qty: 1 on 09/06/2015 by Jairo Montanez MD at [facility] [id number] / N/A / N/A T2 F/T Locking Screw Left: Foot UNIDENTIFI Implanted: Qty: 1 on 09/06/2015 by ED G Jairo Bravo MD at [facility] [id number] / NA / NA Wire Fixation 285mm 3mm Marcos Left: Foot ANGEL:HO T2 Supracondylar Stainless WMEDICA Implanted: Qty: 2 on 09/06/2015 by OSTEONICJairo Reilly MD at [facility] AP-6740-[id number] / [id number] / [id number] Screw Bone 6/7mm 4mm 40mm Acutrak Right: Foot THE MARMON Titanium .094in Femur GRP:ACUMED Implanted: Qty: 1 on 03/06/2016 by Jairo Bravo MD at [facility] AP-6745-[id number] / [id number] / [id number] Screw Bone 6/7mm 45mm Acutrak Right: Foot THE [place] Titanium .094in Femur Condyle GRP:ACUMED Implanted: Qty: 1 on 03/06/2016 by Jairo Bravo MD at [facility] AP-[id number] / [id number] / [id number] Screw Bone 6/7mm 4mm 55mm Acutrak Right: Foot THE [place] Titanium .094in Femur GRP:ACUMED Implanted: Qty: 1 on 03/06/2016 by Jairo Bravo MD at [facility] 09/28/2016 ABS-2003-05 / [id number] / [id number] Filler Bone Void 3ml Cancellous Right: Foot ARTHREX Demineralized Bone Matrix Implanted: Qty: 1 on 03/06/2016 by Jairo Bravo MD at [facility] Results Not on filefrom Last 3 Months Insurance Type Payer Benefit Subscriber ID Effective Phone Address Plan / Dates Group PPO BCBS MYRA BCBS MYRA xxxxxxxxxxxx 2014-P [facility] resent BLUE Advance 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 necessary based on Dx 01/23/2015 3:48 PM Full Code 01/15/2015 9:56 AM Provider has discussed Code Status No, discussion not w/Patient or Family? necessary based on Dx 08/10/2014 12:45 PM Full Code 08/06/2014 9:29 PM Provider has discussed Code Status No, discussion not w/Patient or Family? necessary based on Dx 05/18/2014 4:39 PM Full Code 05/12/2014 8:22 PM Provider has discussed Code Status No, discussion not w/Patient or Family? necessary based on Dx
--- OUTSIDE RECORDS SUMMARY | 2018-09-25 08:38 | XMS REPORT | Continuity of Care Document ---
Author Organization Unknown Address Unknown Allergies Active Description Code Type Severity Reaction Onset Reported/Identified Relationship to Patient Clinical Status Yes Sulfa (Sulfonamide Antibiotics) [id number] Drug Allergy Moderate N/A 05/21/2016 Medications There is no data. Problems Date Dx Coded Attending Type Code Diagnosis Diagnosed By 05/21/2016 CORY HARGROVE APRN Ot G89.29 OTHER CHRONIC PAIN 05/22/2016 CORY HARGROVE APRN Ot G89.29 OTHER CHRONIC PAIN 05/22/2016 CORY HARGROVE APRN Ot G89.29 OTHER CHRONIC PAIN 05/27/2016 CORY HARGROVE APRN Ot G89.29 OTHER CHRONIC PAIN 08/29/2018 GEORGIA HOOKS MD, Ot G47.00 INSOMNIA, UNSPECIFIED 08/29/2018 GE[place]GIA HOOKS MD, Ot G62.9 POLYNEUROPATHY, UNSPECIFIED 08/29/2018 GE[place]GIA HOOKS MD, Ot R42 DIZZINESS AND GIDDINESS 08/29/2018 GEORGIA HOOKS MD, Ot R53.83 OTHER FATIGUE 08/29/2018 GEORGIA HOOKS MD, Ot R55 SYNCOPE AND COLLAPSE 08/29/2018 GEORGIA HOOKS MD, Ot Z88.2 ALLERGY STATUS TO SULFONAMIDES STATUS 08/29/2018 GEORGIA HOOKS MD, Ot Z90.710 ACQUIRED ABSENCE OF BOTH CERVIX AND UTER 08/29/2018 GEORGIA HOOKS MD, Ot Z98.51 TUBAL LIGATION STATUS 08/29/2018 GEORGIA HOOKS MD, Ot Z98.890 OTHER SPECIFIED POSTPROCEDURAL STATES Procedures There is no data. Results Test Result Range Complete blood count (CBC) with automated white blood cell (WBC) differential - 08/25/18 17:35 Blood leukocytes automated count (number/volume) 11.2 10*3/uL 4.3-11.0 Blood erythrocytes automated count (number/volume) 3.85 10*6/uL 4.35-5.85 Venous blood hemoglobin measurement (mass/volume) 12.6 g/dL 11.5-16.0 Blood hematocrit (volume fraction) 37 % 35-52 Automated erythrocyte mean corpuscular volume 96 [foz_us] 80-99 Automated erythrocyte mean corpuscular hemoglobin (mass per erythrocyte) 33 pg 25-34 Automated erythrocyte mean corpuscular hemoglobin concentration measurement (mass/volume) 34 g/dL 32-36 Automated erythrocyte distribution width ratio 14.2 % 10.0- 14.5 Automated blood platelet count (count/volume) 315 10*3/uL 130-400 Automated blood platelet mean volume measurement 9.7 [foz_us] 7.4-10.4 Automated blood neutrophils/100 leukocytes 64 % 42-75 Automated blood lymphocytes/100 leukocytes 29 % 12-44 Blood monocytes/100 leukocytes 6 % 0-12 Automated blood eosinophils/100 leukocytes 1 % 0-10 Automated blood basophils/100 leukocytes 0 % 0-10 Blood neutrophils automated count (number/volume) 7.1 10*3 1.8-7.8 Blood lymphocytes automated count (number/volume) 3.3 10*3 1.0-4.0 Blood monocytes automated count (number/volume) 0.6 10*3 0.0- 1.0 Automated eosinophil count 0.1 10*3/uL 0.0-0.3 Automated blood basophil count (count/volume) 0.0 10*3/uL 0.0-0.1 PT panel in platelet poor plasma by coagulation assay - 08/25/18 17:35 Prothrombin time (PT) in platelet poor plasma by coagulation assay 11.9 s 12.2-14.7 INR in platelet poor plasma or blood by coagulation assay 0.8 0.8-1.4 Activated partial thromboplastin time (aPTT) in platelet poor plasma bycoagulation assay - 08/25/18 17:35 Activated partial thromboplastin time (aPTT) in platelet poor plasma bycoagulation assay 30 s 24-35 Comprehensive metabolic panel - 08/25/18 17:35 Serum or plasma sodium measurement (moles/volume) 137 mmol/L 135-145 Serum or plasma potassium measurement (moles/volume) 3.9 mmol/L 3.6-5.0 Serum or plasma chloride measurement (moles/volume) 100 mmol/L 98-107 Carbon dioxide 24 mmol/L 21-32 Serum or plasma anion gap determination (moles/volume) 13 mmol/L 5-14 Serum or plasma urea nitrogen measurement (mass/volume) 8 mg/dL 7-18 Serum or plasma creatinine measurement (mass/volume) 0.52 mg/dL 0.60-1.30 Serum or plasma urea nitrogen/creatinine mass ratio 15 NRG Serum or plasma creatinine measurement with calculation of estimated glomerular filtration rate > NRG Serum or plasma glucose measurement (mass/volume) 95 mg/dL 70-105 Serum or plasma calcium measurement (mass/volume) 9.3 mg/dL 8.5-10.1 Serum or plasma total bilirubin measurement (mass/volume) 0.2 mg/dL 0.1-1.0 Serum or plasma alkaline phosphatase measurement (enzymatic activity/volume) 128 U/L 40-136 Serum or plasma aspartate aminotransferase measurement (enzymatic activity/volume) 18 U/L 5-34 Serum or plasma alanine aminotransferase measurement (enzymatic activity/volume) 9 U/L 0-55 Serum or plasma protein measurement (mass/volume) 6.8 g/dL 6.4-8.2 Serum or plasma albumin measurement (mass/volume) 4.1 g/dL 3.2-4.5 CALCIUM CORRECTED 9.2 mg/dL 8.5-10.1 Magnesium - 08/25/18 17:35 Magnesium 1.7 mg/dL 1.8-2.4 TROPONIN T - 08/25/18 17:35 TROPONIN T < 6 <=10 Complete urinalysis with reflex to culture - 08/25/18 18:24 Urine color determination YELLOW NRG Urine clarity determination CLEAR NRG Urine pH measurement by test strip 6.0 5-9 Specific gravity of urine by test strip < 1.016-1.022 Urine protein assay by test strip, semi-quantitative NEGATIVE NEGATIVE Urine glucose detection by automated test strip NEGATIVE NEGATIVE Erythrocytes detection in urine sediment by light microscopy NEGATIVE NEGATIVE Urine ketones detection by automated test strip NEGATIVE NEGATIVE Urine nitrite detection by test strip NEGATIVE NEGATIVE Urine total bilirubin detection by test strip NEGATIVE NEGATIVE Urine urobilinogen measurement by automated test strip (mass/volume) 0.2 mg/dL NORMAL Urine leukocyte esterase detection by dipstick NEGATIVE NEGATIVE Automated urine sediment erythrocyte count by microscopy (number/high power field) NONE NRG Automated urine sediment leukocyte count by microscopy (number/high power field) NONE NRG Bacteria detection in urine sediment by light microscopy TRACE NRG Squamous epithelial cells detection in urine sediment by light microscopy 0-2 NRG Crystals detection in urine sediment by light microscopy NONE NRG Casts detection in urine sediment by light microscopy NONE NRG Mucus detection in urine sediment by light microscopy NEGATIVE NRG Complete urinalysis with reflex to culture NO NRG Urine drug screening test - 08/25/18 18:24 Urine phencyclidine detection by screening method NEGATIVE NEGATIVE Urine benzodiazepines detection by screening method NEGATIVE NEGATIVE Urine cocaine detection NEGATIVE NEGATIVE Urine amphetamines detection by screening method NEGATIVE NEGATIVE Urine methamphetamine detection by screening method NEGATIVE NEGATIVE Urine cannabinoids detection by screening method NEGATIVE NEGATIVE Urine opiates detection by screening method POSITIVE NEGATIVE Urine barbiturates detection NEGATIVE NEGATIVE Screening urine tricyclic antidepressants detection NEGATIVE NEGATIVE Urine methadone detection by screening method NEGATIVE NEGATIVE Urine oxycodone detection NEGATIVE NEGATIVE Urine propoxyphene detection NEGATIVE NEGATIVE Encounters ACCT No. Visit Date/Time Discharge Status Pt. Type Provider Facility Loc./Unit Complaint [id number] 08/25/2018 17:23:00 08/25/2018 19:30:00 DIS Outpatient JESSEE GORE, [place] Landis [facility] ER FS DIZZY, PT FELL [id number] 05/21/2016 12:37:00 05/21/2016 12:53:00 DIS Emergency CORY HARGROVE APRN [facility] ER MED REFILL
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
--- NOTE | 2018-09-25 09:03 | Diagnostic Imaging Report ---
Indication: Fall with right wrist injury and pain AP, oblique and lateral views of the right wrist are obtained. FINDINGS: No acute fracture or dislocation is identified. No abnormal lytic or sclerotic focus is seen, and there is no radiopaque foreign body. IMPRESSION: No acute abnormality. Dictated by: Dictated on workstation # [id number]
--- NOTE | 2018-09-25 09:03 | Diagnostic Imaging Report ---
INDICATION: Fall last night, knee pain. Oblique and lateral views of the right knee are obtained. FINDINGS: No acute fracture or dislocation is identified. No abnormal lytic or sclerotic focus is seen, and there is no radiopaque foreign body. IMPRESSION: No acute abnormality. Dictated by: Dictated on workstation # [id number]
[2018-09-25 09:23] VITALS: BP 122/95
== END 2018-09-25 09:25 | disposition home or self-care (01) ==
LOC: EDUNIT# 08:33 → ER FS 08:34
DX: S80.01XA Contusion of right knee, initial encounter (principal); S60.211A Contusion of right wrist, initial encounter; G62.9 Polyneuropathy, unspecified; F17.210 Nicotine dependence, cigarettes, uncomplicated; Z90.710 Acquired absence of both cervix and uterus; Z98.51 Tubal ligation status; Z88.2 Allergy status to sulfonamides; W01.198A Fall on same level from slipping, tripping and stumbling with subsequent striking against other object, initial encounter; Y92.511 Restaurant or cafe as the place of occurrence of the external cause
CPT/HCPCS: 73110; 73562

== ENCOUNTER 2019-03-26 13:32 | Emergency (ER) | payer SELFPAY ==
[~2019-03-26] VITALS: Ht 154 cm; Wt 69.9 kg
[2019-03-26] MEDS ORDERED: GBPN600T (13:51)
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
[2019-03-26] MEDS ORDERED: CLON0.1T PO (16:29)
[2019-03-26] MEDS ORDERED: ONDA4TAB11 PO (16:29)
[2019-03-26 16:35] VITALS: BP 154/99
== END 2019-03-26 16:35 | disposition home or self-care (01) ==
LOC: EDUNIT# 13:32 → ER 13:33
DX: F11.23 Opioid dependence with withdrawal (principal); G62.9 Polyneuropathy, unspecified; F17.210 Nicotine dependence, cigarettes, uncomplicated; Z88.2 Allergy status to sulfonamides; Z90.710 Acquired absence of both cervix and uterus; Z98.51 Tubal ligation status
CPT/HCPCS: 99285

== ENCOUNTER 2019-12-24 09:11 | Emergency (ER) | payer SELFPAY ==
[~2019-12-24] VITALS: Ht 154.9 cm; Wt 83.9 kg
[~2019-12-24 09:11] MED LIST changes: +CLON0.1T PO; +GBPN600T; +ONDA4TAB11 PO
--- NOTE | 2019-12-24 10:31 | ED EENT ---
History of Present Illness General Chief Complaint: Dental Problems/Pain Stated Complaint: DENTAL PAIN WITH FACIAL SWELLING Nursing Triage Note: Patient reports she began having right upper tooth pain Wednesday afternoon. States she went to walk-in care on Wednesday and received a prescription for Augmentin, states she has two doses so far. She reports that her tooth pain is better, but began having severe right sided facial swelling yesterday and worsened this morning. She also reports pus coming from her right eye. Source: patient History of Present Illness Date Seen by Provider: Dec 24, 2019 Time Seen by Provider: 10:31 Initial Comments 39-year-old female presenting with right-sided facial swelling. She was seen in urgent care on Wednesday and started on Augmentin. She started having dental pain on Wednesday. She states that overnight she was trying to use ice and had her head elevated with a pillow with ice pack. This morning she had increased swelling and pain. She felt like she was having burning into her eye with the swelling and pain. She was concerned that the infection might need an IV dose of antibiotics after speaking with the urgent care. Allergies and Home Medications Allergies Coded Allergies: Sulfa (Sulfonamide Antibiotics) (Verified Allergy, Intermediate, 09/25/18) Home Medications Clonidine HCl 0.1 Mg Tablet, 0.1 MG PO Q6H PRN for AGITATION Prescribed by: EDVIN MCMULLEN on 03/26/19 1629 Ondansetron 4 Mg Tab.rapdis, 4 MG PO Q6H PRN for NAUSEA/VOMITING Prescribed by: EDVIN MCMULLEN on 03/26/19 1629 Prednisone 20 Mg Tab, 40 MG PO DAILY Prescribed by: GEORGIA HOOKS on 12/24/19 1231 Pregabalin 150 Mg Capsule, 150 MG PO TID, (Reported) Patient Home Medication List Home Medication List Reviewed: Yes Review of Systems Review of Systems Constitutional: No chills, No fever Eyes: Blurred Vision (due to swelling of eyelids) Ears: No Symptoms Reported Nose: congestion Mouth: see HPI Throat: no symptoms reported Respiratory: no symptoms reported Cardiovascular: no symptoms reported Gastrointestinal: no symptoms reported Musculoskeletal: no symptoms reported Skin: change in color (redness and swelling to right cheek and around eye) Neurological: Headache (right side) Past [place]-Kpbckj-Vfjdty Hx Past Med/Social Hx: Reviewed Nursing Past Med/Soc Hx Patient Social History Alcohol Use: Denies Use Recreational Drug Use: No Smoking Status: Current Everyday Smoker Type Used: Cigarettes 2nd Hand Smoke Exposure: No Recent Foreign Travel: No Contact w/Someone Who Travel: No Recent Infectious Disease Expo: No Recent Hopitalizations: Yes (SURGERY IN 02/2016 FOR LT FOOT) Physical Abuse: No Sexual Abuse: No Mistreated: No Fear: No Seasonal Allergies Seasonal Allergies: Yes Past Medical History Surgeries: Yes Hysterectomy, Orthopedic, Tubal Ligation Respiratory: No Cardiac: No 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 oz. 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, alert, oriented x 3 Skin: warm/dry Progress/Results/Core Measures Results/Orders My Orders Orders - GEORGIA HOOKS MD Ed Iv/Invasive Line Start (12/24/19 10:48) Ceftriaxone For Iv Use (Rocephin For I (12/24/19 11:00) Dexamethasone Injection (Decadron Inje (12/24/19 10:48) Medications Given in ED Current Medications Medications Dose Ordered Sig/Cornel Route Start Time Stop Time Status Last Admin Dose Admin Ceftriaxone Sodium 1000 mg/ Sterile Water 10 ml @ 200 mls/hr ONCE ONCE IV 12/24/19 11:00 12/24/19 11:02 DC 12/24/19 11:10 200 MLS/HR Vital Signs/I&O 12/24/19 12/24/19 09:31 12:39 Temp 36.4 Pulse 85 92 Resp 16 16 B/P (MAP) 131/95 (107) 91/48 Pulse Ox 99 95 O2 Delivery Room Air Room Air Blood Pressure Mean: 107 Progress Progress Note #1: Progress Note try an IV dose of decadron 10 mg and Rocephin 1 gm IV Progress Note #2: Progress Note on recheck she is having some improvement in her symptoms. Will continue with prednisone for a few days and continue on Augmentin. If not improving or if worsening she may need IV antibiotics to clear this up. Counseled to keep her head elevated to help with gravity to prevent worsening swelling. Departure Impression Primary Impression: Dental abscess Additional Impression: Right facial swelling Disposition: HOME, SELF-CARE Condition: Stable Departure-Patient Inst. Decision time for Depature: 12:28 Referrals: [facility] (PCP) Primary Care Physician ULISES LEMA APRN (Family) Primary Care Physician Patient Instructions: Tooth Decay, Adult (DC), Dental Pain (DC), Tooth Abscess (DC) Add. Discharge Instructions: Keep your head elevated at least 30-45 degrees at all times for the next few days to help limit the swelling and pain. Take the antibiotic until gone to treat for infection and abscess. Use the steroid for the next couple of days to help with swelling and pain Follow up with clinic or return if worsening as you may need further antibiotics by IV or admit to the hospital if not responding to medicine and treatment as an outpatient All discharge instructions reviewed with patient and/or family. Voiced understanding. Scripts Prednisone (Prednisone) 20 Mg Tab 40 MG PO DAILY for facial swelling/infection for 3 Days, #6 TAB 0 Refills Prov: GEORGIA HOOKS MD 12/24/19 Work/School Note: Work Release Form Date Seen in the Emergency Department: Dec 24, 2019 Return to Work: Dec 25, 2019 Restrictions: No Restrictions Images Head/Face 1 - Moderate, Edema, Swelling, Tenderness GEORGIA HOOKS MD Dec 24, 2019 10:31
[2019-12-24] MEDS ORDERED: cefTRIAXone FOR IV USE 1,000 MG in WATER (STERILE) FOR INJECTION 10 ML IV ONE (11:00)
[2019-12-24] MEDS ORDERED: PRD20T PO (12:31)
[2019-12-24 12:39] VITALS: BP 91/48
== END 2019-12-24 12:38 | disposition home or self-care (01) ==
LOC: EDUNIT# 09:11 → ER FS 09:12
DX: K04.7 Periapical abscess without sinus (principal); R22.0 Localized swelling, mass and lump, head; F17.210 Nicotine dependence, cigarettes, uncomplicated; Z88.2 Allergy status to sulfonamides; Z79.52 Long term (current) use of systemic steroids

== ENCOUNTER 2020-05-24 16:13 | Emergency (ER) | payer SELFPAY ==
[~2020-05-24] VITALS: Ht 180.3 cm; Wt 82.6 kg
[~2020-05-24 16:13] MED LIST changes: +CLN.1T PO; -CLON0.1T PO; +PRD20T PO
[2020-05-24 16:15] VITALS: BP 130/87
[2020-05-24] MEDS ORDERED: CLON0.5T25 PO (16:30)
--- NOTE | 2020-05-24 16:30 | ED Psychosocial ---
General Chief Complaint: Psych/Social Disorder Stated Complaint: PANIC ATTACKS Source: patient Exam Limitations: no limitations History of Present Illness Date Seen by Provider: May 24, 2020 Time Seen by Provider: 16:19 Initial Comments Patient presents ER by private conveyance with chief complaint that she had over the past month been having recurrence of panic attacks of distal gotten worse in the last week which she associates with recently losing her job. She knows this is a temporary state so she called her primary care doctor to get an. They worked her in first thing Wednesday but she is scared that she has had some very bad panic attack she was not able to work through easily and does not want to have a rough weekend. In the past she had used Klonopin half milligrams successfully but she has not used them for about a year. She does not have any left. She also talked to the doctor about starting something for anxiety again. She also is interested in seeking out counseling. Allergies and Home Medications Allergies Coded Allergies: Sulfa (Sulfonamide Antibiotics) (Verified Allergy, Intermediate, 09/25/18) Home Medications Clonidine HCl 0.1 Mg Tablet, 0.1 MG PO Q6H PRN for AGITATION Prescribed by: EDVIN MCMULLEN on 03/26/19 1629 Ondansetron 4 Mg Tab.rapdis, 4 MG PO Q6H PRN for NAUSEA/VOMITING Prescribed by: EDVIN MCMULLEN on 03/26/19 1629 Prednisone 20 Mg Tab, 40 MG PO DAILY Prescribed by: GEORGIA HOOKS on 12/24/19 1231 Pregabalin 150 Mg Capsule, 150 MG PO TID, (Reported) Patient Home Medication List Home Medication List Reviewed: Yes Review of Systems Constitutional: No chills, No diaphoresis EENTM: No ear discharge, No ear pain Respiratory: No cough, No short of breath Cardiovascular: No chest pain, No Hx of Intervention : No Musculoskeletal: No back pain, No joint pain All Other Systems Reviewed Negative Unless Noted: Yes Past Xmvaaax-Shlllt-Csdjtd Hx Patient Social History Alcohol Use: Denies Use Smoking Status: Current Everyday Smoker Type Used: Cigarettes 2nd Hand Smoke Exposure: No Recent Hopitalizations: Yes (SURGERY IN 02/2016 FOR LT FOOT) Seasonal Allergies Seasonal Allergies: Yes Past Medical History Surgeries: Yes Hysterectomy, Orthopedic, Tubal Ligation Respiratory: No Cardiac: No 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 oz. 54.168534lw; 34.00 BMI Method:Stated General Appearance: WD/WN, no apparent distress HEENT: pharynx normal Neck: full range of motion, normal inspection Respiratory: no respiratory distress, no accessory muscle use Neurologic/Psychiatric: alert, oriented x 3, other (Mildly anxious. Denies suicidal ideation) Appearance/Memory: appropriate appearance, appropriate insight, neat, no memory impairment Behavior/Eye Contact: cooperative, good eye contact, normal speech Thoughts/Hallucinations: normal thought pattern, no apparent hallucination Skin: normal color, warm/dry Progress/Results/Core Measures Progress Progress Note : Time: 16:27 Progress Note We discussed conservative counseling techniques and she wants to get into counseling. We discussed behavioral cognitive techniques and she is already aware of a lot of these. Were going to provide her with a few days worth of Klonopin and have her follow-up Wednesday with her primary care doctor to discuss appropriate pharmacotherapy such as SSRIs etc. Departure Impression Primary Impression: Panic attack as reaction to stress Disposition: 01 HOME, SELF-CARE Condition: Stable Departure-Patient Inst. Decision time for Depature: 16:28 Referrals: [facility] [place] Primary Care Physician ULISES LEMA APRN (Family) Primary Care Physician Patient Instructions: Panic Disorder (DC), Stress Add. Discharge Instructions: At the first sign of a panic attack take 0.5 mg Klonopin up to 2 doses a day. Will cause drowsiness and should not be mixed with alcohol or operating machinery. Keep your follow-up appointment with your primary care provider to discuss appropriate therapy, medicines and techniques to deal with panic disorder. All discharge instructions reviewed with patient and/or family. Voiced understanding. Scripts Clonazepam (Clonazepam) 0.5 Mg Tab.rapdis 0.5 MG PO BID for 7 Days, #14 TAB 0 Refills Prov: EDVIN MCMULLEN 05/24/20 EDVIN MCMULLEN May 24, 2020 16:30
== END 2020-05-24 16:30 | disposition home or self-care (01) ==
LOC: EDUNIT# 16:13 → ER FS 16:14
DX: F43.0 Acute stress reaction (principal); F17.210 Nicotine dependence, cigarettes, uncomplicated; Z88.2 Allergy status to sulfonamides; Z79.52 Long term (current) use of systemic steroids
CPT/HCPCS: 99283

== ENCOUNTER 2020-11-13 08:15 | Emergency (ER) | payer BC, OTHER ==
[~2020-11-13] VITALS: Ht 154 cm; Wt 80.0 kg
[~2020-11-13 08:15] MED LIST changes: +CLON0.5T25 PO
[2020-11-13 08:24] VITALS: BP 150/100
--- NOTE | 2020-11-13 08:28 | ED Lower Extremity ---
General Chief Complaint: Lower Extremity Stated Complaint: LT ANKLE/FOOT INJ History of Present Illness Date Seen by Provider: Nov 13, 2020 Time Seen by Provider: 08:27 Initial Comments 3-year-old female with past medical history significant for left ankle trauma and orthopedic repair..... Presents with left ankle injury this morning while walking her dog. She states she slipped and inverted her ankle. Now with some swelling and pain with weightbearing. No other injury or pain. Followed by [facility] Ortho. Allergies and Home Medications Allergies Coded Allergies: Sulfa (Sulfonamide Antibiotics) (Verified Allergy, Intermediate, 09/25/18) Home Medications Clonazepam 0.5 Mg Tab.rapdis, 0.5 MG PO BID Prescribed by: EDVIN MCMULLEN on 05/24/20 1631 Clonidine HCl 0.1 Mg Tablet, 0.1 MG PO Q6H PRN for AGITATION Prescribed by: EDVIN MCMULLEN on 03/26/19 1629 Hydrocodone/Acetaminophen 1 Each Tablet, 1 EACH PO Q4H Prescribed by: ANTONIO ZACARIAS on 11/13/20 0904 Ibuprofen 800 Mg Tablet, 800 MG PO Q8H PRN for PAIN Prescribed by: ANTONIO ZACARIAS on 11/13/20 0904 Ondansetron 4 Mg Tab.rapdis, 4 MG PO Q6H PRN for NAUSEA/VOMITING Prescribed by: EDVIN MCMULLEN on 03/26/19 1629 Prednisone 20 Mg Tab, 40 MG PO DAILY Prescribed by: GEORGIA HOOKS on 12/24/19 1231 Pregabalin 150 Mg Capsule, 150 MG PO TID, (Reported) Patient Home Medication List Home Medication List Reviewed: Yes Review of Systems Constitutional: No fever, No malaise, No weakness Respiratory: No cough, No short of breath Musculoskeletal: No back pain; joint pain, joint swelling; No muscle pain Skin: No change in color, No rash Psychiatric/Neurological: Denies Numbness, Denies Paresthesia Past Pbldjna-Qlclrh-Nwoeje Hx Patient Social History Tobacco Use?: Yes Seasonal Allergies Seasonal Allergies: Yes Past Medical History Surgeries: Yes Hysterectomy, Orthopedic, Tubal Ligation Respiratory: No Cardiac: No 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 oz. 54.637744kz; 25.00 BMI Method:Stated General Appearance: WD/WN, no apparent distress Legs: bilateral leg non-tender, bilateral leg normal inspection, bilateral leg normal range of motion Knees: bilateral knee non-tender, bilateral knee normal inspection, bilateral knee normal range of motion Ankles: left ankle bone tenderness, left ankle limited range of motion, left ankle pain, left ankle soft tissue tenderness, left ankle swelling Feet: left foot bone tenderness, left foot pain, left foot soft tissue tenderness Neurologic/Tendon: normal sensation, normal motor functions, normal tendon functions Neurologic/Psychiatric: alert, normal mood/affect Skin: normal color, warm/dry Progress/Results/Core Measures Results/Orders My Orders Orders - ANTONIO ZACARIAS DO Ankle 3 View Left (11/13/20 08:27) Vital Signs/I&O 11/13/20 08:24 Temp 36.2 Pulse 91 Resp 20 B/P (MAP) 150/100 (117) Pulse Ox 99 O2 Delivery Room Air Diagnostic Imaging Diagonstic Imaging: Xray Comments Date of Exam:11/13/20 ANKLE 3 VIEW LEFT INDICATION: Left ankle pain, swelling COMPARISON: None. FINDINGS: 4 views left ankle demonstrate postoperative absence of the distal fibula. There is chronic fusion of the ankle mortise. There is an IM blake traversing the talocalcaneal joint and ankle mortise. Orthopedic hardware is well seated. There is no acute fracture or dislocation. IMPRESSION: 1. No acute fracture identified. 2. Stable postoperative changes. Dictated on workstation # [id number] Dict: 11/13/20 0857 Trans: 11/13/20 0859 [facility] [id number] Interpreted by: YAS MCKEON Electronically signed by: Departure Impression Primary Impression: Sprain and strain of ankle Disposition: 01 HOME, SELF-CARE Condition: Stable Departure-Patient Inst. Decision time for Depature: 09:02 Referrals: SHELBI SNOW APRN (PCP) Primary Care Physician [facility] (Family) Primary Care Physician Patient Instructions: Ankle Sprain (DC) Add. Discharge Instructions: Wear your "Ortho boot" for comfort and advance to regular shoes as tolerated. Follow up with your Ortho Doctor in 1 week if not improving, sooner if worse All discharge instructions reviewed with patient and/or family. Voiced understanding. Scripts Ibuprofen (Ibuprofen) 800 Mg Tablet 800 MG PO Q8H PRN for PAIN, #30 TAB 0 Refills Prov: ANTONIO ZACARIAS DO 11/13/20 Hydrocodone/Acetaminophen (Hydrocodone-Acetamin 5-325 mg) 1 Each Tablet 1 EACH PO Q4H for Abdominal Pain, #10 TAB Prov: ANTONIO ZACARIAS DO 11/13/20 ANTONIO ZACARIAS DO Nov 13, 2020 08:28
--- NOTE | 2020-11-13 09:00 | Diagnostic Imaging Report ---
INDICATION: Left ankle pain, swelling COMPARISON: None. FINDINGS: 4 views left ankle demonstrate postoperative absence of the distal fibula. There is chronic fusion of the ankle mortise. There is an IM blake traversing the talocalcaneal joint and ankle mortise. Orthopedic hardware is well seated. There is no acute fracture or dislocation. IMPRESSION: 1. No acute fracture identified. 2. Stable postoperative changes. Dictated by: Dictated on workstation # [id number]
[2020-11-13] MEDS ORDERED: ACHD5005 PO (09:04)
[2020-11-13] MEDS ORDERED: IBUP-1780 PO (09:04)
== END 2020-11-13 09:08 | disposition home or self-care (01) ==
LOC: EDUNIT# 08:15 → ER FS 08:18
DX: S93.402A Sprain of unspecified ligament of left ankle, initial encounter (principal); Z79.52 Long term (current) use of systemic steroids; X50.1XXA Overexertion from prolonged static or awkward postures, initial encounter
CPT/HCPCS: 73610

== ENCOUNTER 2021-04-07 02:45 | Emergency (ER) | payer BC ==
[~2021-04-07] VITALS: Ht 155 cm; Wt 88.5 kg
[~2021-04-07 02:45] MED LIST changes: +ACHD5005 PO; +IBUP-1780 PO
[2021-04-07] MEDS ORDERED: IOHEXOL 350 MG/ML 100 ML (OMNIPAQUE 350) VIAL IV ONE (03:15)
[2021-04-07] MEDS ORDERED: LORazepam INJ 2 MG/ML (ATIVAN) VIAL IVP ONE (03:15)
[2021-04-07] MEDS ORDERED: HOLD METFORMIN - RECEIVED CONTRAST 20 ML VIAL IV SCH (03:15)
[2021-04-07] MEDS ORDERED: NS IV 1000 ML 1,000 ML IV SCH (03:15)
[2021-04-07] MEDS ORDERED: NS 100 ML (IVPB) BAG IV ONE (03:15)
[2021-04-07] MEDS ORDERED: diphenhydrAMINE 50 MG/ML INJ (BENADRYL) IM ONE (03:15)
[2021-04-07] MEDS ORDERED: CATHETER FLUSH 10 ML SYR IV PRN (03:15)
[2021-04-07 03:27] LABS: WHITE BLOOD COUNT 17.6 10^3/uL (4.3-11.0)
[2021-04-07 03:28] LABS: BASOPHILS % (AUTO) 0 % (0-10); EOSINOPHILS % (AUTO) 0 % (0-10); HEMATOCRIT 41 % (35-52); HEMOGLOBIN 14.1 g/dL (11.5-16.0); LYMPHOCYTES % (AUTO) 16 % (12-44); MEAN CORPUSCULAR HEMOGLOBIN 31 pg (25-34); MEAN CORPUSCULAR HGB CONC 34 g/dL (32-36); MEAN CORPUSCULAR VOLUME 89 fL (80-99); MEAN PLATELET VOLUME 10.4 fL (9.0-12.2); MONOCYTES % (AUTO) 6 % (0-12); NEUTROPHILS % (AUTO) 78 % (42-75); PLATELET COUNT 358 10^3/uL (130-400)
[2021-04-07 03:29] LABS: BASOPHILS # (AUTO) 0.1 10^3/uL (0.0-0.1); LYMPHOCYTES # (AUTO) 2.8 X 10^3 (1.0-4.0); NEUTROPHILS # (AUTO) 13.7 X 10^3 (1.8-7.8)
--- NOTE | 2021-04-07 03:36 | ED General ---
General Stated Complaint: SOB Source of Information: Patient Exam Limitations: No Limitations History of Present Illness Date Seen by Provider: Apr 07, 2021 Time Seen by Provider: 03:10 Initial Comments Patient is a 40-year-old female who presents with nausea, cough, shortness of breath and chest tightness starting approximately 4 hours prior to ED arrival. Patient also reports generalized flushing. Symptoms are described as moderate. Denies rash or itching patient did receive the first dose of the Pfizer COVID vaccination approximately 3 hours prior to the onset of symptoms. . Patient describes sensation of unable to catch a full breath. No fever chills or sweats. Timing/Duration: 4-6 Hours Severity: Moderate Modifying Factors: improves with Other Allergies and Home Medications Allergies Coded Allergies: Sulfa (Sulfonamide Antibiotics) (Verified Allergy, Intermediate, 09/25/18) Patient Home Medication List Home Medication List Reviewed: Yes Clonazepam (Clonazepam) 0.5 Mg Tab.rapdis, 0.5 MG PO BID Prescribed by: EDVIN MCMULLEN on 05/24/20 1631 Clonidine HCl (Clonidine HCl) 0.1 Mg Tablet, 0.1 MG PO Q6H PRN for AGITATION Prescribed by: EDVIN MCMULLEN on 03/26/19 1629 Gabapentin (Gabapentin) 600 Mg Tablet, (Reported) Entered as Reported by: ZOILA MCGARRY on 03/26/19 1351 Hydrocodone/Acetaminophen (Hydrocodone-Acetamin 5-325 mg) 1 Each Tablet, 1 EACH PO Q4H Prescribed by: ANTONIO ZACARIAS on 11/13/20 0904 Ibuprofen (Ibuprofen) 800 Mg Tablet, 800 MG PO Q8H PRN for PAIN Prescribed by: ANTONIO ZACARIAS on 11/13/20 0904 Ondansetron (Ondansetron Odt) 4 Mg Tab.rapdis, 4 MG PO Q6H PRN for NAUSEA/VOMITING Prescribed by: EDVIN MCMULLEN on 03/26/19 1629 Prednisone (Prednisone) 20 Mg Tab, 40 MG PO DAILY Prescribed by: GEORGIA HOOKS on 12/24/19 1231 Pregabalin (Lyrica) 150 Mg Capsule, 150 MG PO TID, (Reported) Entered as Reported by: JULIANNE WASHINGTON on 05/21/16 1250 Review of Systems Review of Systems Constitutional: see HPI EENTM: see HPI Respiratory: see HPI Cardiovascular: see HPI Gastrointestinal: see HPI Genitourinary: see HPI Musculoskeletal: see HPI Skin: see HPI Psychiatric/Neurological: See HPI Hematologic/Lymphatic: See HPI Immunological/Allergic: see HPI All Other Systems Reviewed Negative Unless Noted: Yes Past Rtwnxjl-Ezqsom-Bcyndg Hx Patient Social History Tobacco Use?: Yes Seasonal Allergies Seasonal Allergies: Yes Past Medical History Surgeries: Yes Hysterectomy, Orthopedic, Tubal Ligation Respiratory: No Cardiac: No Neurological: Yes Neuropathy [employer] History: Hysterectomy Genitourinary: No Gastrointestinal: No Musculoskeletal: No Endocrine: No HEENT: No Cancer: No Psychosocial: No Integumentary: No Blood Disorders: No Physical Exam Vital Signs Vital Signs - First Documented 04/07/21 04/07/21 04/07/21 03:30 03:35 03:43 Temp 37.5 Pulse 107 Resp 20 B/P (MAP) 121/86 Pulse Ox 97 O2 Delivery Room Air O2 Flow Rate 0 Capillary Refill : Height, Weight, BMI Height: 5'1.00" Weight: 120lbs. oz. 54.293407gt; 33.00 BMI Method:Stated General Appearance: No Apparent Distress, Anxious Eyes: Bilateral Eye Normal Inspection, Bilateral Eye PERRL, Bilateral Eye EOMI HEENT: PERRL/EOMI (Generalized flushing), TMs Normal, Pharynx Normal Respiratory: Lungs Clear, Normal Breath Sounds, No Accessory Muscle Use, Decreased Breath Sounds Cardiovascular: Tachycardia Gastrointestinal: Non Tender, Soft Neurologic/Psychiatric: Alert, Oriented x3 Focused Exam Sepsis Stage: Ruled Out Lactate Level 04/07/21 06:10: Lactic Acid Level 0.86 Lactic Acid Level Laboratory Tests Test 04/07/21 06:10 Lactic Acid Level 0.86 MMOL/L (0.50-2.00) Progress/Results/Core Measures Suspected Sepsis SIRS Temperature: Pulse: Respiratory Rate: Laboratory Tests 04/07/21 03:00: White Blood Count 17.6H Blood Pressure / Mean: 04/07/21 06:10: Lactic Acid Level 0.86 Laboratory Tests 04/07/21 03:00: Creatinine 0.68, Platelet Count 358, Total Bilirubin 0.5 Results/Orders Lab Results Laboratory Tests Test 04/07/21 03:00 04/07/21 06:10 04/07/21 06:30 Range/Units White Blood Count 17.6 H 4.3-11.0 10^3/uL Red Blood Count 4.59 3.80-5.11 10^6/uL Hemoglobin 14.1 11.5-16.0 g/dL Hematocrit 41 35-52 % Mean Corpuscular Volume 89 80-99 fL Mean Corpuscular Hemoglobin 31 25-34 pg Mean Corpuscular Hemoglobin Concent 34 32-36 g/dL Red Cell Distribution Width 14.1 10.0-14.5 % Platelet Count 358 130-400 10^3/uL Mean Platelet Volume 10.4 9.0-12.2 fL Immature Granulocyte % (Auto) 0 % Neutrophils (%) (Auto) 78 H 42-75 % Lymphocytes (%) (Auto) 16 12-44 % Monocytes (%) (Auto) 6 0-12 % Eosinophils (%) (Auto) 0 0-10 % Basophils (%) (Auto) 0 0-10 % Neutrophils # (Auto) 13.7 H 1.8-7.8 X 10^3 Lymphocytes # (Auto) 2.8 1.0-4.0 X 10^3 Monocytes # (Auto) 1.0 0.0-1.0 X 10^3 Eosinophils # (Auto) 0.0 0.0-0.3 10^3/uL Basophils # (Auto) 0.1 0.0-0.1 10^3/uL Immature Granulocyte # (Auto) 0.1 0.0-0.1 10^3/uL Neutrophils % (Manual) 78 % Lymphocytes % (Manual) 10 % Monocytes % (Manual) 4 % Basophils % (Manual) 1 % Band Neutrophils 1 % Atypical Lymphocytes 3 % Reactive Lymphocytes 3 % Toxic Granulation 3+ Platelet Estimate NORMAL Blood Morphology Comment NORMAL Sodium Level 136 135-145 MMOL/L Potassium Level 3.7 3.6-5.0 MMOL/L Chloride Level 101 98-107 MMOL/L Carbon Dioxide Level 22 21-32 MMOL/L Anion Gap 13 5-14 MMOL/L Blood Urea Nitrogen 6 L 7-18 MG/DL Creatinine 0.68 0.60-1.30 MG/DL Estimat Glomerular Filtration Rate 95 BUN/Creatinine Ratio 9 Glucose Level 98 70-105 MG/DL Calcium Level 9.4 8.5-10.1 MG/DL Corrected Calcium 9.1 8.5-10.1 MG/DL Total Bilirubin 0.5 0.1-1.0 MG/DL Aspartate Amino Transf (AST/SGOT) 19 5-34 U/L Alanine Aminotransferase (ALT/SGPT) 14 0-55 U/L Alkaline Phosphatase 188 H 40-136 U/L Troponin I < 0.30 <0.30 NG/ML Pro-B-Type Natriuretic Peptide 100.1 H <75.0 PG/ML Total Protein 7.8 6.4-8.2 GM/DL Albumin 4.4 3.2-4.5 GM/DL Lactic Acid Level 0.86 0.50-2.00 MMOL/L Blood Gas Puncture Site RT. RADIAL Blood Gas Patient Temperature 37.5 Arterial Blood pH 7.42 7.37-7.43 Arterial Blood Partial Pressure CO2 37 35-45 MMHG Arterial Blood Partial Pressure O2 64 L 79-93 MMHG Arterial Blood HCO3 24 23-27 MMOL/L Arterial Blood Total CO2 25.1 21.0-31.0 MMOL/L Arterial Blood Oxygen Saturation 92 L 94-100 % Arterial Blood Base Excess -0.2 -2.5-2.5 MMOL/L Bakari Test YES-POS Blood Gas Ventilator Setting NO Blood Gas Inspired Oxygen ROOM AIR My Orders Orders - MINERVA MINOR DO Cbc With Automated Diff (04/07/21 03:04) Comprehensive Metabolic Panel (04/07/21 03:04) Troponin I Hubert (04/07/21 03:04) Probnp Fs (04/07/21 03:04) Ekg-Prn For Chest Pain Or Rhyt (04/07/21 03:04) Ns Iv 1000 Ml (Sodium Chloride 0.9%) (04/07/21 03:15) Ct Angio Chest W (04/07/21 03:04) Diphenhydramine Injection (Benadryl Inje (04/07/21 03:15) Lorazepam Injection (Ativan Injection) (04/07/21 03:15) Iohexol Injection (Omnipaque 350 Mg/Ml 1 (04/07/21 03:15) Received Contrast (Hold Metformin- Contr (04/07/21 03:15) Sodium Chloride Flush (Catheter Flush Sy (04/07/21 03:15) Ns (Ivpb) (Sodium Chloride 0.9% Ivpb Bag (04/07/21 03:15) Manual Differential (04/07/21 03:00) Ekg-Prn For Chest Pain Or Rhyt (04/07/21 03:31) Lactic Acid Analyzer (04/07/21 05:35) Covid 19 Inhouse Test (04/07/21 05:35) Influenza A And B By Pcr (04/07/21 05:35) Isolation Central Supply Req (04/07/21 05:35) Arterial Blood Gas (04/07/21 05:37) Ceftriaxone 1 Gm Pre-Mix (Rocephin 1 Gm (04/07/21 05:45) Blood Culture (04/07/21 05:37) Chest 1 View Ap/Pa Only (04/07/21 05:37) Medications Given in ED Current Medications Medications Dose Ordered Sig/Cornel Route Start Time Stop Time Status Last Admin Dose Admin Ceftriaxone Sodium/Dextrose 50 ml @ 100 mls/hr ONCE ONCE IV 04/07/21 05:45 04/07/21 06:14 DC 04/07/21 06:08 100 MLS/HR Diphenhydramine HCl 50 mg ONCE ONCE IM 04/07/21 03:15 04/07/21 03:16 DC 04/07/21 03:27 50 MG Iohexol 100 ml ONCE ONCE IV 04/07/21 03:15 04/07/21 03:16 DC 04/07/21 04:23 100 ML Lorazepam 1 mg ONCE ONCE IVP 04/07/21 03:15 04/07/21 03:16 DC 04/07/21 03:30 1 MG Sodium Chloride 10 ml NEEDED PRN IV 04/07/21 03:15 04/07/21 04:23 10 ML Sodium Chloride 100 ml ONCE ONCE IV 04/07/21 03:15 04/07/21 03:16 DC 04/07/21 04:23 100 ML Vital Signs/I&O 04/07/21 04/07/21 04/07/21 04/07/21 03:30 03:35 03:43 04:15 Temp 37.5 37.5 Pulse 107 117 117 110 Resp 20 22 20 B/P (MAP) 121/86 118/92 (101) 118/92 110/69 Pulse Ox 97 96 O2 Delivery Room Air O2 Flow Rate 0 04/07/21 04/07/21 04/07/21 04/07/21 04:30 04:45 05:00 05:15 Pulse 111 108 107 109 Resp 20 20 22 20 B/P (MAP) 112/84 104/64 112/79 111/75 Pulse Ox 97 94 95 93 O2 Delivery Room Air Capillary Refill : Departure Communication (Admissions) CTA chest: Bilateral pulmonary opacities Findings consistent with COVID. Symptoms improved with treatment. We will continue supportive care and prescribed new antiviral medication with instructions to self quarantine and monitor at home. Return precautions reviewed. Patient verbalizes understanding and agreement with discharge instructions prior to departure Impression Primary Impression: COVID Disposition: HOME, SELF-CARE Condition: Stable Departure-Patient Inst. Decision time for Depature: 06:58 Referrals: SHELBI SNOW APRN (PCP) Primary Care Physician [facility] (Family) Primary Care Physician Patient Instructions: COVID-19 (DC) Add. Discharge Instructions: Please take newly prescribed medications including new approved antiviral att Henry Barragan and take as directed. Continue to self quarantine and monitor symptoms. If your oxygen levels fall below 90% or you develop new or concerning symptoms, return to the emergency department. Scripts Doxycycline Hyclate (Doxycycline Hyclate) 50 Mg Tablet.dr 50 MG PO DAILY, #5 TAB Prov: MINERVA MINOR DO 04/07/21 Albuterol Sulfate (Proventil Hfa) 6.7 Gm Hfa.aer.ad 2 PUFF INH Q6H for SHORTNESS OF BREATH, #1 EACH Prov: MINERVA MINOR DO 04/07/21 Prednisone (Prednisone) 50 Mg Tab 50 MG PO DAILY, #6 TAB Prov: MINERVA MINOR DO 04/07/21 MINERVA MINOR DO Apr 07, 2021 03:36
[2021-04-07 03:47] LABS: ATYPICAL LYMPHOCYTES 3 %; BAND NEUTROPHILS 1 %; BASOPHILS % (MANUAL) 1 %; LYMPHOCYTES % (MANUAL) 10 %; MONOCYTES % (MANUAL) 4 %; NEUTROPHILS % (MANUAL) 78 %; REACTIVE LYMPHOCYTES 3 %
[2021-04-07 03:48] LABS: PLATELET ESTIMATE NORMAL; RBC MORPH NORMAL; TOXIC GRANULATION/VACUOLAZATIO 3+
[2021-04-07 03:51] LABS: ALANINE AMINOTRANSFERASE 14 U/L (0-55); ALKALINE PHOSPHATASE 188 U/L (40-136); BILIRUBIN,TOTAL 0.5 MG/DL (0.1-1.0); BUN/CREATININE RATIO 9; CALCIUM 9.4 MG/DL (8.5-10.1); CARBON DIOXIDE 22 MMOL/L (21-32); CHLORIDE 101 MMOL/L (98-107); CREATININE SERUM 0.68 MG/DL (0.60-1.30); GFR ESTIMATED 95; GLUCOSE 98 MG/DL (70-105); POTASSIUM 3.7 MMOL/L (3.6-5.0); SODIUM 136 MMOL/L (135-145)
[2021-04-07 03:52] LABS: ALBUMIN 4.4 GM/DL (3.2-4.5); TOTAL PROTEIN 7.8 GM/DL (6.4-8.2)
--- NOTE | 2021-04-07 04:29 | Diagnostic Imaging Report ---
PROCEDURE: CT angiography of the chest with contrast. TECHNIQUE: Multiple contiguous axial images were obtained through the chest after uneventful bolus administration of intravenous contrast. 3D reconstructed CTA MIP acquisitions were also performed. Auto Exposure Controls were utilized during the CT exam to meet ALARA standards for radiation dose reduction. DATE: April 07, 2021. COMPARISON: Chest radiograph August 25, 2018. INDICATION: 40-year-old female, shortness of breath. FINDINGS: There is a right upper lobe pulmonary nodule on axial image 30 which measures 7 mm in size. There is patchy multifocal alveolar consolidation in the lungs bilaterally with some areas of alveolar consolidation being near groundglass in attenuation. There is no identified pneumothorax. There is no pleural effusion. The central airways are patent. The heart is not enlarged. There is no pericardial effusion. There is no identified pulmonary embolus. The main pulmonary artery is normal in caliber. There is no identified abnormally enlarged mediastinal, hilar, or axillary lymph node which meets CT size criteria for adenopathy. Limited evaluation of the imaged portions of the upper abdomen is unremarkable. There is hardware at the level of the right proximal humerus. IMPRESSION: CT CHEST. 1. Multifocal patchy alveolar consolidation suspicious for multifocal pneumonia and pneumonitis relating to Covid-19 infection. Other atypical infectious etiologies and causes of pneumonitis are also in the differential diagnosis. 2. No identified pulmonary embolus. 3. A 7 mm right upper lobe pulmonary nodule. Recommend follow-up CT chest in 2-3 months to evaluate for stability. Dictated by: Dictated on workstation # [id number]
[2021-04-07] MEDS ORDERED: cefTRIAXone 1 GM PRE-MIX 50 ML IV ONE (05:45)
--- NOTE | 2021-04-07 06:17 | Diagnostic Imaging Report ---
EXAMINATION: Chest radiograph, portable AP view. DATE: 04/07/2021 6:05 AM INDICATION: 40-year-old female, shortness of breath. COMPARISON: Chest radiograph August 25, 2018. CT chest April 07, 2021. FINDINGS: Heart size and mediastinal contours are unremarkable. There is no identified pneumothorax. There is no large pleural effusion. There are very subtle areas of hazy lung opacification with multifocal lung consolidation better seen on same day CT chest exam. IMPRESSION: 1. Multifocal airspace consolidation much better visualized on same day CT chest study with imaging appearance suspicious for multifocal pneumonia and pneumonitis relating to Covid-19 infection. Other atypical infectious etiologies and causes of pneumonitis are also in the differential diagnosis. Dictated by: Dictated on workstation # [id number]
[2021-04-07 06:42] LABS: ABG BASE EXCESS -0.2 MMOL/L (-2.5-2.5); ABG OXYGEN SATURATION 92 % (94-100); ABG PCO2 37 MMHG (35-45); ABG PH 7.42 (7.37-7.43); ABG PO2 64 MMHG (79-93); ABG TCO2 25.1 MMOL/L (21.0-31.0); ALLENS TEST YES-POS; INSPIRED O2 ROOM AIR; PATIENT TEMP 37.5; VENTILATOR NO
[2021-04-07] MEDS ORDERED: RT-ALBUINH INH (07:04)
[2021-04-07] MEDS ORDERED: DOXY50TA9 PO (07:04)
[2021-04-07] MEDS ORDERED: PRD50T PO (07:04)
[2021-04-07 07:19] VITALS: BP 134/78
== END 2021-04-07 07:19 | disposition home or self-care (01) ==
LOC: EDUNIT# 02:45 → ER FS 02:47
DX: U07.1 COVID-19 (principal)
CPT/HCPCS: 36415; 71045; 71275; 80053; 82805; 83605; 83880; 84484; 85007; 85027; 87040; 87635; 87804; 96372; 96374; 96375

== ENCOUNTER 2021-04-09 14:53 | Emergency (ER) | payer BC ==
[~2021-04-09] VITALS: Ht 155 cm; Wt 88.5 kg
[~2021-04-09 14:53] MED LIST changes: +DOXY50TA9 PO; +PRD50T PO; +RT-ALBUINH INH
--- NOTE | 2021-04-09 15:58 | ED Respiratory ---
General Chief Complaint: COVID19 Suspect/Confirmed Stated Complaint: SOB,CP,LOW O2 Nursing Triage Note: PT AMB TO ER WITH C/O WORSENING COVID PNEUMONIA SYMPTOMS. PT TESTED POS FOR COVID 3 DAYS AGO. PT HAS CHECKED HER O2 AT HOME AND IT HAS BEEN 88-89% TODAY AFTER WALKING Source: patient Exam Limitations: no limitations History of Present Illness Date Seen by Provider: Apr 09, 2021 Time Seen by Provider: 15:20 Initial Comments Patient is a 40-year-old female who presents to the emergency department with a chief complaint of worsening shortness of breath and low oxygen at home. Patient states she was diagnosed with COVID-pneumonia this past Wednesday at [facility] emergency department. She states she received her first COVID vaccination last Wednesday, suddenly started developing symptoms on Wednesday evening. Went to the emergency room and was sent home on Paxil of it, doxycycline and steroids. Patient states she has been taking her medications as directed. She was not sent home on oxygen. She tells me that her oxygen levels have been dropping into the low to mid 80s, in triage she was noted to be 89%. At rest in the bed noted to be 94 to 96%. She was also given an inhaler. She is using that every 4-6 hours. Slightly productive cough. No fevers. Did have diarrhea earlier in the week. No swelling in her legs or cramping in her calves. All other review of systems reviewed and negative except as stated. Timing/Duration: week, getting worse Severity: moderate Prior Episodes/Possible Cause: illness exposure Modifying Factors: Worse With Activity, Worse With Coughing Associated Symptoms: cough, muscle aches, shortness of breath Allergies and Home Medications Allergies Coded Allergies: Sulfa (Sulfonamide Antibiotics) (Verified Allergy, Intermediate, 09/25/18) Patient Home Medication List Home Medication List Reviewed: Yes Albuterol Sulfate (Proventil Hfa) 6.7 Gm Hfa.aer.ad, 2 PUFF INH Q6H Prescribed by: MINERVA MINOR on 04/07/21 0704 Clonazepam (Clonazepam) 0.5 Mg Tab.rapdis, 0.5 MG PO BID Prescribed by: EDVIN MCMULLEN on 05/24/20 1631 Clonidine HCl (Clonidine HCl) 0.1 Mg Tablet, 0.1 MG PO Q6H PRN for AGITATION Prescribed by: EDVIN MCMULLEN on 03/26/19 1629 Doxycycline Hyclate (Doxycycline Hyclate) 50 Mg Tablet.dr, 50 MG PO DAILY Prescribed by: MINERVA MINOR on 04/07/21 0704 Gabapentin (Gabapentin) 600 Mg Tablet, (Reported) Entered as Reported by: ZOILA MCGARRY on 03/26/19 1351 Hydrocodone/Acetaminophen (Hydrocodone-Acetamin 5-325 mg) 1 Each Tablet, 1 EACH PO Q4H Prescribed by: ANTONIO ZACARIAS on 11/13/20 0904 Ibuprofen (Ibuprofen) 800 Mg Tablet, 800 MG PO Q8H PRN for PAIN Prescribed by: ANTONIO LEIVASTJUSTICE on 11/13/20 0904 Ondansetron (Ondansetron Odt) 4 Mg Tab.rapdis, 4 MG PO Q6H PRN for NAUSEA/VOMITING Prescribed by: EDVIN MCMULLEN on 03/26/19 1629 Prednisone (Prednisone) 20 Mg Tab, 40 MG PO DAILY Prescribed by: GEORGIA HOOKS on 12/24/19 1231 Prednisone (Prednisone) 50 Mg Tab, 50 MG PO DAILY Prescribed by: MINERVA MINOR on 04/07/21 0704 Pregabalin (Lyrica) 150 Mg Capsule, 150 MG PO TID, (Reported) Entered as Reported by: JULIANNE WASHINGTON on 05/21/16 1250 Review of Systems Review of Systems Constitutional: see HPI EENTM: no symptoms reported Respiratory: cough, dyspnea on exertion, phlegm, short of breath Cardiovascular: no symptoms reported Gastrointestinal: loss of appetite Genitourinary: no symptoms reported Musculoskeletal: no symptoms reported Skin: no symptoms reported Psychiatric/Neurological: Headache All Other Systems Reviewed Negative Unless Noted: Yes Past Yfwxfpo-Xwxjan-Fjeqvx Hx Patient Social History Tobacco Use?: Yes Tobacco type used: Cigarettes Smoking Status: Current Everyday Smoker Substance use?: No Alcohol Use?: No Pt feels they are or have been: No Immunizations Up To Date Influenza Vaccine Up-to-Date: No; Not Current First/Initial COVID19 Vaccinat: 04-06-21 COVID19 Vaccine [employer]: [employer] Seasonal Allergies Seasonal Allergies: Yes Past Medical History Surgery/Hospitalization HX: ANXIETY, COVID Surgeries: Yes Hysterectomy, Orthopedic, Tubal Ligation Respiratory: No Cardiac: No Neurological: Yes Neuropathy [employer] History: Hysterectomy Genitourinary: No Gastrointestinal: No Musculoskeletal: No Endocrine: No HEENT: No Cancer: No Psychosocial: No Integumentary: No Blood Disorders: No Physical Exam Vital Signs - First Documented 04/09/21 15:15 Temp 36.4 Pulse 91 Resp 18 B/P (MAP) 128/91 (103) Pulse Ox 96 O2 Delivery Room Air Capillary Refill : Height: 5'1.00" Weight: 120lbs. oz. 54.822484en; 36.00 BMI Method:Stated General Appearance: WD/WN, no apparent distress Eyes: Bilateral Eye Normal Inspection, Bilateral Eye PERRL, Bilateral Eye EOMI Neck: normal inspection Respiratory: lungs clear (room air sats 94% at rest), normal breath sounds, no respiratory distress, no accessory muscle use Cardiovascular: regular rate, rhythm Gastrointestinal: normal bowel sounds, non tender, soft Extremities: normal range of motion, non-tender, normal inspection, no pedal edema, no calf tenderness Neurologic/Psychiatric: alert, normal mood/affect, oriented x 3 Skin: normal color, warm/dry Progress/Results/Core Measures Suspected Sepsis SIRS Temperature: Pulse: 91 Respiratory Rate: 18 Blood Pressure 128 /91 Mean: 103 Results/Orders My Orders Orders - AISLINN TOWNSEND MD Covid-19 External Lab Results (04/09/21 15:35) Chest 1 View, Ap/Pa Only (04/09/21 15:35) Isolation Central Supply Req (04/09/21 15:35) Vital Signs/I&O 04/09/21 04/09/21 15:15 15:52 Temp 36.4 Pulse 91 Resp 18 B/P (MAP) 128/91 (103) Pulse Ox 96 O2 Delivery Room Air Room Air Capillary Refill : Blood Pressure Mean: 103 Progress Note #1: Time: 16:25 Progress Note Patient reassessed after chest x-ray, room air sat 91%. We were able to get the patient up and walking for about 3 minutes in the room off oxygen. Oxygen saturations remained at 86% on room air. Patient became quite fatigued/symptomatic. Progress Note #2: Time: 16:49 Progress Note Discussed oxygen supplementation with [facility]" out of [place]. We faxed patient demographics as well as a note indicating her degree of hypoxia. Her mother will go hand picker her oxygen and meet her with that at home. Patient is comfortable with this plan of care all questions have been sought and answered. Her degree of pneumonia has not worsened in the 4 days since her diagnosis and subsequent CT angiogram of the chest. There was no pulmonary embolism identified on that study. She did have a 7 mm right apical lung nodule, she was unaware of this. I advised her to follow-up as directed by radiology in 2 to 3 months. Diagnostic Imaging Diagonstic Imaging: Xray Plain Films/CT/US/NM/MRI: chest Comments [facility], [place] NAME: LENA YANCEY [facility] REC#: [id number] PT STATUS: REG ER : 1980 PHYSICIAN: AISLINN TOWNSEND MD ADMIT DATE: 04/09/21/ER Draft Date of Exam:04/09/21 CHEST 1 VIEW, AP/PA ONLY INDICATION: Worsening pneumonia. TIME OF EXAM: 3:47 p.m. COMPARISON: Correlation is made with prior chest from 04/07/2021. FINDINGS: Heart size is stable. Overall lung martinez appear to be stable when compared with examination from two days earlier. Previously seen ground-glass infiltrates in the upper lobes on CT are much more difficult to visualize by plain film. There appear to be some peripheral based infiltrates in the left upper lobe. Lower lobes appear to be fairly clear. IMPRESSION: Stable appearance to the chest when compared with examination two days earlier. No new airspace consolidation is identified. Dictated on workstation # [id number] Dict: 04/09/21 1557 Trans: 04/09/21 1603 [id number] Interpreted by: MICHAEL WILEY MD Electronically signed by: Departure Impression Primary Impression: Pneumonia due to COVID-19 virus Additional Impression: Hypoxia Disposition: HOME, SELF-CARE Condition: Stable Departure-Patient Inst. Decision time for Depature: 16:45 Referrals: SHELBI SNOW APRN (PCP) Primary Care Physician [facility] (Family) Primary Care Physician Patient Instructions: COVID-19 Overview Add. Discharge Instructions: Continue to use your inhaler 2 puffs every 4-6 hours for shortness of breath. Use the home oxygen as directed. If you notice that your oxygen saturations are continuing to drop in spite of the oxygen or you are having worsening shortness of breath you need to come back to the emergency department. Finish the antibiotics, prednisone and Paxlovid as prescribed. Follow-up with your primary care doctor at the end of May/beginning of June for the small nodule that was found at the top of your right lung on CAT scan from [facility] on Wednesday AISLINN TOWNSEND MD Apr 09, 2021 15:58
--- NOTE | 2021-04-09 16:03 | Diagnostic Imaging Report ---
INDICATION: Worsening pneumonia. TIME OF EXAM: 3:47 p.m. COMPARISON: Correlation is made with prior chest from 04/07/2021. FINDINGS: Heart size is stable. Overall lung martinez appear to be stable when compared with examination from two days earlier. Previously seen ground-glass infiltrates in the upper lobes on CT are much more difficult to visualize by plain film. There appear to be some peripheral based infiltrates in the left upper lobe. Lower lobes appear to be fairly clear. IMPRESSION: Stable appearance to the chest when compared with examination two days earlier. No new airspace consolidation is identified. Dictated by: Dictated on workstation # [id number]
[2021-04-09 17:10] VITALS: BP 134/81
== END 2021-04-09 17:10 | disposition home or self-care (01) ==
LOC: EDUNIT# 14:53 → ER 14:55
DX: U07.1 COVID-19 (principal); J12.82 Pneumonia due to coronavirus disease 2019; R09.02 Hypoxemia; F41.9 Anxiety disorder, unspecified; F17.210 Nicotine dependence, cigarettes, uncomplicated; Z79.899 Other long term (current) drug therapy
CPT/HCPCS: 71045

== ENCOUNTER 2021-11-10 07:16 | Emergency (ER) | payer BC ==
[~2021-11-10] VITALS: Ht 154.9 cm; Wt 76.0 kg
[~2021-11-10 07:16] MED LIST changes: +DOXY50TA16 PO; -DOXY50TA9 PO
--- NOTE | 2021-11-10 07:20 | ED Lower Extremity ---
General Stated Complaint: LT ANKLE INJ History of Present Illness Date Seen by Provider: Nov 10, 2021 Time Seen by Provider: 07:20 Initial Comments 40yr F is here with complaints of left ankle pain which occurred when she was trying to hang wet clothes outside and stepped in a hole and twisted her ankle. Patient has a history of multiple surgeries in the left ankle she has a blake placed and skin grafting as well. Patient has baseline inability to dorsiflex and flex the ankle due to prior surgeries. Denies sensory loss, head strike, actual fall. Allergies and Home Medications Allergies Coded Allergies: Sulfa (Sulfonamide Antibiotics) (Verified Allergy, Intermediate, 09/25/18) Patient Home Medication List Home Medication List Reviewed: Yes Albuterol Sulfate (Proventil Hfa) 6.7 Gm Hfa.aer.ad, 2 PUFF INH Q6H Prescribed by: MINERVA MINOR on 04/07/21703 Last Action: Last Taken Edited Celecoxib (Celecoxib) 100 Mg Capsule, (Reported) Entered as Reported by: CHELSEA PEARL on 11/10/21749 Last Action: New Order Gabapentin (Gabapentin) 600 Mg Tablet, (Reported) Entered as Reported by: ZOILA MCGARRY on 03/26/19 1351 Last Action: Last Taken Edited Hydroxyzine Pamoate (Hydroxyzine Pamoate) 50 Mg Capsule, (Reported) Entered as Reported by: CHELSEA PEARL on 11/10/21749 Last Action: New Order [Tramadol ] , (Reported) Entered as Reported by: CHELSEA PEARL on 11/10/21749 Last Action: New Order Discontinued Medications Clonazepam (Clonazepam) 0.5 Mg Tab.rapdis, 0.5 MG PO BID Discontinued Reason: Referral/FU Appt-Addtl Prescribed by: EDVIN MCMULLEN on 05/24/20 1631 Last Action: Discontinued Clonidine HCl (Clonidine HCl) 0.1 Mg Tablet, 0.1 MG PO Q6H PRN for AGITATION Discontinued Reason: Referral/FU Appt-Addtl Prescribed by: EDVIN MCMULLEN on 03/26/19 1629 Last Action: Discontinued Doxycycline Hyclate (Doxycycline Hyclate) 50 Mg Tablet.dr, 50 MG PO DAILY Discontinued Reason: Referral/FU Appt-Addtl Prescribed by: MINERVA MINOR on 04/07/21703 Last Action: Discontinued Hydrocodone/Acetaminophen (Hydrocodone-Acetamin 5-325 mg) 1 Each Tablet, 1 EACH PO Q4H Discontinued Reason: Referral/FU Appt-Addtl Prescribed by: ANTONIO ZACARIAS on 11/13/20 09 Last Action: Discontinued Ibuprofen (Ibuprofen) 800 Mg Tablet, 800 MG PO Q8H PRN for PAIN Discontinued Reason: Referral/FU Appt-Addtl Prescribed by: ANTONIO ZACARIAS on 11/13/20 09 Last Action: Discontinued Ondansetron (Ondansetron Odt) 4 Mg Tab.rapdis, 4 MG PO Q6H PRN for NAUSEA/VOMITING Discontinued Reason: Referral/FU Appt-Addtl Prescribed by: EDVIN MCMULLEN on 03/26/19 1629 Last Action: Discontinued Prednisone (Prednisone) 20 Mg Tab, 40 MG PO DAILY Discontinued Reason: Referral/FU Appt-Addtl Prescribed by: GEORGIA HOOKS on 12/24/19 1231 Last Action: Discontinued Prednisone (Prednisone) 50 Mg Tab, 50 MG PO DAILY Discontinued Reason: Referral/FU Appt-Addtl Prescribed by: MINERVA MINOR on 04/07/21 0704 Last Action: Discontinued Pregabalin (Lyrica) 150 Mg Capsule, 150 MG PO TID, (Reported) Discontinued Reason: Referral/FU Appt-Addtl Entered as Reported by: JULIANNE WASHINGTON on 05/21/16 1250 Last Action: Discontinued Review of Systems Constitutional: no symptoms reported EENTM: no symptoms reported Respiratory: no symptoms reported Cardiovascular: no symptoms reported Gastrointestinal: no symptoms reported Genitourinary: no symptoms reported Musculoskeletal: joint pain, joint swelling Skin: no symptoms reported Psychiatric/Neurological: No Symptoms Reported Past Sqgrmvc-Crkeiu-Leqbwg Hx Immunizations Up To Date First/Initial COVID19 Vaccinat: 04-06-21 Seasonal Allergies Seasonal Allergies: Yes Past Medical History Surgery/Hospitalization HX: ANXIETY, COVID Surgeries: Yes Hysterectomy, Orthopedic, Tubal Ligation Respiratory: No Cardiac: No Neurological: Yes Neuropathy MILK [facility]ULER History: Hysterectomy Genitourinary: No Gastrointestinal: No Musculoskeletal: No Endocrine: No HEENT: No Cancer: No Psychosocial: No Integumentary: No Blood Disorders: No Physical Exam Vital Signs Vital Signs - First Documented 11/10/21 07:24 Temp 37.3 Pulse 110 Resp 20 B/P (MAP) 147/113 (124) Pulse Ox 100 O2 Delivery Room Air Capillary Refill : Height, Weight, BMI Height: 5'1.00" Weight: 120lbs. oz. 54.592378vy; 36.00 BMI Method:Stated General Appearance: WD/WN, no apparent distress HEENT: PERRL/EOMI Neck: full range of motion Back: normal inspection Ankles: left ankle limited range of motion, left ankle pain, left ankle soft tissue tenderness, left ankle swelling Feet: left foot non-tender, left foot normal inspection, left foot normal range of motion, left foot no evidence of injury Neurologic/Tendon: normal sensation Neurologic/Psychiatric: alert, normal mood/affect, oriented x 3 Skin: normal color Progress/Results/Core Measures Results/Orders My Orders Orders - HAILEY MCQUEEN MD Ankle 3 View Left (11/10/21 07:21) Vital Signs/I&O 11/10/21 07:24 Temp 37.3 Pulse 110 Resp 20 B/P (MAP) 147/113 (124) Pulse Ox 100 O2 Delivery Room Air Progress Progress Note : Progress Note 1. LEFT ANKLE SPRAIN: - XR Left Ankle: no fracture or dislocation -Patient does not want crutches or Vin bandage because she has it at home and will use it once she reaches home. -Ice and ibuprofen advised, keep foot elevated when sitting down. -Patient works 12-hour shifts standing. Will give work note to go back to work only after Ortho clearance. -The patient was seen in the ED, and treated appropriately to presentation at a specific point in time. Patient is informed that there is a possibility that disease and illness can evolve and change in acuity rapidly or slowly after patient is discharged from the ER. Precautionary advice given to the patient for immediate return to ER if symptoms worsen or do not resolve, and to seek emergency care sooner rather than later. Pt also advised on the importance of PCP follow up and compliance with management and follow up plan with PCP and/or specialist, as this is part of the management plan. Pt verbally expressed understanding. Diagnostic Imaging Diagonstic Imaging: Xray Plain Films/CT/US/NM/MRI: ankle Comments [facility], [place] NAME: LENA YANCEY MED REC#: [id number] PT STATUS: REG ER : 1980 PHYSICIAN: HAILEY MCQUEEN MD ADMIT DATE: 11/10/21/ER FS Draft Date of Exam:11/10/21 ANKLE 3 VIEW LEFT INDICATION: Post fall, left ankle pain. History of left ankle surgery 6 years ago. TECHNIQUE: Three views of the left ankle CORRELATION STUDY: 11/13/2020 FINDINGS: Arthrodesis hardware with a long intramedullary blake through the distal tibia, across the talus into the calcaneus with fixation screws. The tibiotalar and subtalar joints are fused and there is distortion and loss of configuration height of the hindfoot. Resection of the distal fibula. Distortion with narrowing at the talonavicular articulation. Some generalized bony demineralization. Surgical clips in the soft tissues. IMPRESSION: Negative for acute bony abnormality of the ankle. Postoperative changes at the ankle and hindfoot.. Dictated on workstation # [id number] Dict: 11/10/21 0745 Trans: 11/10/21 0751 [facility] [id number] Interpreted by: BRETT COVARRUBIAS DO Electronically signed by: Departure Impression Primary Impression: Left ankle sprain Qualified Codes: S93.402A - Sprain of unspecified ligament of left ankle, initial encounter Disposition: 01 HOME, SELF-CARE Condition: Stable Departure-Patient Inst. Referrals: [facility] [place] (PCP/Family) Primary Care Physician JERAD DAVIS MD Patient Instructions: Ankle Sprain Add. Discharge Instructions: -Ice and ibuprofen advised, keep foot elevated when sitting down. - Advised crutches and VIN bandage which pt has at home -Patient works 12-hour shifts standing. Work note to go back to work only after Ortho clearance. - Ortho Clinic: Dr Davis: [phone]. Call for appointment for follow up. Work/School Note: Work Release Form Date Seen in the Emergency Department: Nov 10, 2021 Return to Work: Nov 17, 2021 Restrictions: Need Release from Doctor HAILEY MCQUEEN MD Nov 10, 2021 07:20
[2021-11-10] MEDS ORDERED: CELE100C84 (07:50)
[2021-11-10] MEDS ORDERED: Tramadol (07:50)
[2021-11-10] MEDS ORDERED: HYDR50CA3 (07:50)
--- NOTE | 2021-11-10 07:51 | Diagnostic Imaging Report ---
INDICATION: Post fall, left ankle pain. History of left ankle surgery 6 years ago. TECHNIQUE: Three views of the left ankle CORRELATION STUDY: 11/13/2020 FINDINGS: Arthrodesis hardware with a long intramedullary blake through the distal tibia, across the talus into the calcaneus with fixation screws. The tibiotalar and subtalar joints are fused and there is distortion and loss of configuration height of the hindfoot. Resection of the distal fibula. Distortion with narrowing at the talonavicular articulation. Some generalized bony demineralization. Surgical clips in the soft tissues. IMPRESSION: Negative for acute bony abnormality of the ankle. Postoperative changes at the ankle and hindfoot.. Dictated by: Dictated on workstation # [id number]
[2021-11-10 08:18] VITALS: BP 147/113
== END 2021-11-10 08:18 | disposition home or self-care (01) ==
LOC: EDUNIT# 07:16 → ER FS 07:18
DX: S93.402A Sprain of unspecified ligament of left ankle, initial encounter (principal); Z28.311 Partially vaccinated for COVID-19; Z96.698 Presence of other orthopedic joint implants; W17.2XXA Fall into hole, initial encounter; X50.1XXA Overexertion from prolonged static or awkward postures, initial encounter
CPT/HCPCS: 73610

== ENCOUNTER → 2022-01-09 | Outpatient (CLI) | payer BC ==
[~2022-01-09] MED LIST changes: +CELE100C84; +HYDR50CA3; +Tramadol
--- NOTE | 2022-01-09 16:42 | Diagnostic Imaging Report ---
INDICATION: Right hip pain COMPARISON: None. FINDINGS: 2 views of the right hip were obtained and show no fractures, dislocations, or other acute bony abnormalities. Joint spaces are well maintained throughout. The soft tissues appear unremarkable. No unexpected radiopaque foreign bodies are identified. IMPRESSION: Unremarkable radiographic exam of the right hip. Dictated by: Dictated on workstation # [id number]
== END ==
LOC: RAD FS 16:24
PROVIDERS: ATTEND Nurse Practitioner Family
DX: M25.551 Pain in right hip (principal)
CPT/HCPCS: 73502